=== PATIENT | female | born 1995 | race Caucasian/White ===

== ENCOUNTER 2019-02-16 19:40 | Inpatient (IN) ==
[2019-02-16 20:35] LABS: Bilirubin,Urine Small (Negative); Blood,Urine Small (Negative); Clarity,Urine Clear (Clear); Color,Urine Yellow (Yellow); Glucose,Urine (UA) Normal (Normal); Ketones,Urine Trace mg/dL (Negative); Leukocyte Esterase,Urine Negative (Negative); Nitrite,Urine Negative (Negative); Protein,Urine Negative (Neg-Trace); Specific Gravity,Urine 1.027 (1.010-1.025); Urobilinogen,Urine Normal (Normal)
[2019-02-16 20:36] LABS: Bacteria,Urine None Seen per hpf (None-Few); Hyaline Casts,Urine None Seen per lpf (None-Few); RBC,Urine 0-3 per hpf (0-3); Squamous Epithelial Cell,Urine Many per lpf (None-Few)
--- NOTE | 2019-02-16 20:45 | Emergency Department Note ---
Disposition Clinical Impression: Suicidal ideation Disposition: Still a Patient Referrals: NONE,PCP [Primary Care Provider] - Time of Disposition: 20:44 General Adult HPI - General Chief complaint: ED Psychiatric Symptoms Stated complaint: Psych Time Seen by Provider: 02/16/19 20:17 Source: patient Limitations: no limitations Nursing Notes Reviewed: Yes Vital Signs Reviewed: Yes - History of Present Illness HPI Narrative: ED ATTESTATION NOTE: I examined this patient and my medical decision-making was reviewed with the Resident Physician/EDUCATION CONSULTANT/PA/Student. I have personally performed a face to face evaluation on this patient & I agree with the documented findings, disposition and treatment plan as described except to the extent set forth below. Patient was seen with emergency medicine resident Dr. Dewey Cohen please see copy of his note for details of this encounter Briefly: 23-year-old female history of depression no admission in the past has been having increasing stress expresses suicidal ideation without discrete plan physical examination is benign afebrile with stable vital signs patient will undergo screening labs medical clearance and evaluation by mental health services. Disposition pending Pain Scale: 0 - Related Data Home Medications Medication Instructions Recorded Confirmed Lamictal 06/18/17 06/18/17 Previous Rx's Medication Instructions Recorded Amoxicillin/Clavulanate [Augmentin] 875 mg PO BIDWM #20 tablet 06/18/17 GuaiFENesin/Dextromethorphan 5 ml PO Q6HR PRN #120 syrup 06/18/17 [Robitussin/DM] Loratadine/Pseudophed (12 HR) 1 each PO BID #20 tab.er.12h 06/18/17 [Claritin D (12HR)] Ondansetron ODT [Zofran ODT] 4 mg SL Q6HR PRN #14 tab.rapdis 05/04/18 Allergies Allergy/AdvReac Type Severity Reaction Status Date / Time No Known Allergies Allergy Verified 02/16/19 19:41 Past Medical History - Past Medical History Medical history: Reports: non-contributory Psychiatric history: Reports: anxiety, depression 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 INSPECTOR 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: 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: 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 history - Social History Smoking Status: Current every day smoker Smokeless Tobacco Status: No Alcohol use: Reports: occasionally Drug use: Reports: none Physical Exam - General Limitations: no limitations General appearance: alert Course Vital Signs Temperature 98.2 F 02/16/19 19:41 Pulse Rate 107 02/16/19 19:41 Respiratory Rate 16 02/16/19 19:41 Blood Pressure 120/83 02/16/19 19:41 O2 Sat by Pulse Oximetry 98 02/16/19 19:41 Temperature 98.2 F 02/16/19 19:41 Pulse Rate 107 02/16/19 19:41 Respiratory Rate 16 02/16/19 19:41 Blood Pressure 120/83 02/16/19 19:41 O2 Sat by Pulse Oximetry 98 02/16/19 19:41 Oxygen Delivery Oxygen Delivery Room Air Medical Decision Making - Lab Data Lab Results 02/16/19 02/16/19 02/16/19 Range/Units 19:55 20:24 20:24 Urine Color Yellow (Yellow) Urine Clarity Clear (Clear) Urine pH 6.0 (5.0-8.0) pH Units Ur Specific [place] 1.027 H (1.010-1.025) Urine Protein Negative (Neg-Trace) mg/dL Urine Glucose (UA) Normal (Normal) mg/dL Urine Ketones Trace H (Negative) mg/dL Urine Blood Small H (Negative) Urine Nitrite Negative (Negative) Urine Bilirubin Small H (Negative) Urine Urobilinogen Normal (Normal) mg/dL Ur Leukocyte Esterase Negative (Negative) Urine Test Negative (Negative) Ur Drug Screen Interp See Below
--- NOTE | 2019-02-16 20:45 | Emergency Department Note ---
Disposition Clinical Impression: Suicidal ideation, Medical clearance for psychiatric admission Disposition: Still a Patient Condition: Undetermined Referrals: NONE,PCP [Primary Care Provider] - Forms: ED Satisfaction Letter Time of Disposition: 23:26 Psych HPI - General Chief Complaint: ED Psychiatric Symptoms Stated Complaint: Psych Time Seen by Provider: 02/16/19 20:17 Source: patient Mode of arrival: ambulatory Limitations: no limitations Nursing Notes Reviewed: Yes Vital Signs Reviewed: Yes - History of Present Illness HPI Narrative: 23-year-old female with history of depression, arrives to the emergency department with complaint of suicidal ideation, complaint of depression and states that she feels as though she is getting "unstable". The patient saw her counselor advised her to come to the emergency department for evaluation. The patient had a plan to cut herself and states that she probably would but this is how she would kill herself. Patient denies any other complaints at this time. - Related Data Home Medications Medication Instructions Recorded Confirmed Lamictal 06/18/17 06/18/17 Previous Rx's Medication Instructions Recorded Amoxicillin/Clavulanate [Augmentin] 875 mg PO BIDWM #20 tablet 06/18/17 GuaiFENesin/Dextromethorphan 5 ml PO Q6HR PRN #120 syrup 06/18/17 [Robitussin/DM] Loratadine/Pseudophed (12 HR) 1 each PO BID #20 tab.er.12h 06/18/17 [Claritin D (12HR)] Ondansetron ODT [Zofran ODT] 4 mg SL Q6HR PRN #14 tab.rapdis 05/04/18 Allergies Allergy/AdvReac Type Severity Reaction Status Date / Time No Known Allergies Allergy Verified 02/16/19 19:41 All systems ED: reviewed and negative except as stated. Constitutional: Denies: fever, chills, weakness ENT ED: Denies: dysphagia Cardiovascular: Denies: chest pain Respiratory: Denies: dyspnea Gastrointestinal: Denies: abdominal pain Genitourinary: Denies: urgency Musculoskeletal: Denies: back pain Integumentary: Denies: rash Neurological: Denies: headache Psychiatric: Reports: anxiety, depression, suicidal thoughts. Denies: homicidal thoughts, auditory hallucinations, visual hallucinations Past Medical History - Past Medical History Attestation: Yes The following information was validated with the patient. 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 - Social History Smoking Status: Current every day smoker Smokeless Tobacco Status: No Alcohol use: Reports: occasionally Drug use: Reports: none Physical Exam - General Limitations: no limitations General appearance: alert, in no apparent distress - Head Head exam: atraumatic, normocephalic, normal inspection - Eye Eye exam: Present: normal appearance, PERRL, EOMI - ENT ENT exam: normal exam, normal oropharynx, mucous membranes moist - Neck Neck exam: Present: normal inspection, full ROM, trachea midline - Chest Chest inspection: Present: normal inspection, symmetric chest wall rise - Respiratory Respiratory exam: Absent: respiratory distress - Cardiovascular Cardiovascular exam: Present: tachycardia - Extremities Exam Extremities exam: Present: normal inspection, full ROM, normal capillary refill. Absent: tenderness, pedal edema - Neurological Exam Neurological exam: Present: alert, oriented X3 - Skin Skin exam: Present: warm, dry, intact, normal color Course - Consultations Consultation #1: Patient has been medically cleared. We will call one a at this time for evaluation. Time: 21:48 Vital Signs Temperature 98.2 F 02/16/19 19:41 Pulse Rate 107 02/16/19 19:41 Respiratory Rate 16 02/16/19 19:41 Blood Pressure 120/83 02/16/19 19:41 O2 Sat by Pulse Oximetry 98 02/16/19 19:41 Temperature 98.2 F 02/16/19 19:41 Pulse Rate 107 02/16/19 19:41 Respiratory Rate 16 02/16/19 19:41 Blood Pressure 120/83 02/16/19 19:41 O2 Sat by Pulse Oximetry 98 02/16/19 19:41 Oxygen Delivery Oxygen Delivery Room Air Psych - Lab Data Result diagrams: 02/16/19 20:41 02/16/19 20:41 Lab Results 02/16/19 02/16/19 02/16/19 Range/Units 19:55 20:24 20:24 WBC (4.3-11.1) K/mcL RBC (3.82-4.97) M/mcL Hgb (11.5-15.4) g/dL Hct (35.3-44.9) % MCV (83.0-100.0) fL MCH (28.0-33.3) pg MCHC (31.6-35.5) g/dL RDW (11.5-14.5) % Plt Count (140-400) K/mcL MPV (9.4-12.4) fL Immature Gran % (0-4) % Seg Neutrophils % % Lymphocytes % % Monocytes % % Eosinophils % % Basophils % % Neutrophils # (1.6-8.9) K/mcL Lymphocytes # (0.6-4.6) K/mcL Monocytes # (0.0-1.3) K/mcL Eosinophils # (0.0-0.6) K/mcL Basophils # (0.0-0.2) K/mcL Sodium (136-145) mEq/L Potassium (3.5-5.1) mEq/L Chloride (98-107) mEq/L Carbon Dioxide (23-29) mEq/L BUN (6-20) mg/dL Creatinine (0.60-1.20) mg/dL Est GFR ( Amer) (> 60) Est GFR (Non-Af Amer) (> 60) BUN/Creatinine Ratio (6-26) Glucose (70-105) mg/dL Calculated Osmolality (280-300) Calcium (8.6-10.3) mg/dL TSH (0.340-5.600) mcIU/mL Serum , Qual (Negative) Urine Color Yellow (Yellow) Urine Clarity Clear (Clear) Urine pH 6.0 (5.0-8.0) pH Units Ur Specific [place] 1.027 H (1.010-1.025) Urine Protein Negative (Neg-Trace) mg/dL Urine Glucose (UA) Normal (Normal) mg/dL Urine Ketones Trace H (Negative) mg/dL Urine Blood Small H (Negative) Urine Nitrite Negative (Negative) Urine Bilirubin Small H (Negative) Urine Urobilinogen Normal (Normal) mg/dL Ur Leukocyte Esterase Negative (Negative) Urine Microscopic RBC 0-3 (0-3) per hpf Urine Microscopic WBC 3-5 H (0-3) per hpf Ur Squamous Epith Cells Many H (None-Few) per lpf Uric Acid Crystals Present Urine Bacteria None Seen (None-Few) per hpf Hyaline Casts None Seen (None-Few) per lpf Urine Test Negative (Negative) Salicylates (15.0-30.0) mg/dL Urine Opiates Screen Negative (Cnkkvf=888) ng/mL Acetaminophen (10-20) mcg/mL Ur Barbiturates Screen Negative (Frnaqz=089) ng/mL Ur Phencyclidine Scrn Negative (Cutoff=25) ng/mL Ur Amphetamines Screen Negative (Fykmoh=1510) ng/mL U Benzodiazepines Scrn Negative (Eaermk=247) ng/mL Urine Cocaine Screen Negative (Cutoff= 300) ng/mL U Marijuana (THC) Screen Positive H (Cutoff = 50) ng/mL Ur Drug Screen Interp See Below Ethyl Alcohol (Less than 10) mg/dL 02/16/19 02/16/19 02/16/19 Range/Units 20:41 20:41 20:41 WBC 11.6 H (4.3-11.1) K/mcL RBC 4.39 (3.82-4.97) M/mcL Hgb 13.7 (11.5-15.4) g/dL Hct 40.1 (35.3-44.9) % MCV 91.3 (83.0-100.0) fL MCH 31.2 (28.0-33.3) pg MCHC 34.2 (31.6-35.5) g/dL RDW 13.0 (11.5-14.5) % Plt Count 191 (140-400) K/mcL MPV 10.3 (9.4-12.4) fL Immature Gran % 0.3 (0-4) % Seg Neutrophils % 64.5 % Lymphocytes % 29.0 % Monocytes % 5.2 % Eosinophils % 0.7 % Basophils % 0.3 % Neutrophils # 7.5 (1.6-8.9) K/mcL Lymphocytes # 3.4 (0.6-4.6) K/mcL Monocytes # 0.6 (0.0-1.3) K/mcL Eosinophils # 0.1 (0.0-0.6) K/mcL Basophils # 0.0 (0.0-0.2) K/mcL Sodium 140 (136-145) mEq/L Potassium 3.9 (3.5-5.1) mEq/L Chloride 105 (98-107) mEq/L Carbon Dioxide 24 (23-29) mEq/L BUN 13 (6-20) mg/dL Creatinine 0.59 L (0.60-1.20) mg/dL Est GFR ( Amer) > 60 (> 60) Est GFR (Non-Af Amer) > 60 (> 60) BUN/Creatinine Ratio 22 (6-26) Glucose 96 (70-105) mg/dL Calculated Osmolality 290 (280-300) Calcium 9.0 (8.6-10.3) mg/dL TSH 2.155 (0.340-5.600) mcIU/mL Serum , Qual Negative (Negative) Urine Color (Yellow) Urine Clarity (Clear) Urine pH (5.0-8.0) pH Units Ur Specific [place] (1.010-1.025) Urine Protein (Neg-Trace) mg/dL Urine Glucose (UA) (Normal) mg/dL Urine Ketones (Negative) mg/dL Urine Blood (Negative) Urine Nitrite (Negative) Urine Bilirubin (Negative) Urine Urobilinogen (Normal) mg/dL Ur Leukocyte Esterase (Negative) Urine Microscopic RBC (0-3) per hpf Urine Microscopic WBC (0-3) per hpf Ur Squamous Epith Cells (None-Few) per lpf Uric Acid Crystals Urine Bacteria (None-Few) per hpf Hyaline Casts (None-Few) per lpf Urine Test (Negative) Salicylates < 2.5 L (15.0-30.0) mg/dL Urine Opiates Screen (Shvlbe=436) ng/mL Acetaminophen < 10 L (10-20) mcg/mL Ur Barbiturates Screen (Lgmbug=797) ng/mL Ur Phencyclidine Scrn (Cutoff=25) ng/mL Ur Amphetamines Screen (Tjuzbb=9790) ng/mL U Benzodiazepines Scrn (Nbfxjk=212) ng/mL Urine Cocaine Screen (Cutoff= 300) ng/mL U Marijuana (THC) Screen (Cutoff = 50) ng/mL Ur Drug Screen Interp Ethyl Alcohol < 10 (Less than 10) mg/dL Psychiatric Medical Clearance - Medical Clearance Checklist Medical History: No Social History Section defined Current Vitals: Last Vital Signs Temp 98.2 F 02/16/19 19:41 Pulse 107 02/16/19 19:41 Resp 16 02/16/19 19:41 BP 120/83 02/16/19 19:41 Pulse Ox 98 02/16/19 19:41 Psychiatric Lab Panel: Drug Levels and Toxicity 02/16/19 02/16/19 20:24 20:41 Urine Opiates Screen Negative Acetaminophen < 10 L Ur Barbiturates Screen Negative Ur Phencyclidine Scrn Negative Ur Amphetamines Screen Negative U Benzodiazepines Scrn Negative Urine Cocaine Screen Negative U Marijuana (THC) Screen Positive H Ethyl Alcohol < 10 Abnormal Labs: Abnormal lab results WBC 11.6 K/mcL (4.3-11.1) H 02/16/19 20:41 0.59 mg/dL (0.60-1.20) L 02/16/19 20:41 Ur Specific [place] 1.027 (1.010-1.025) H 02/16/19 19:55 Trace mg/dL (Negative) H 02/16/19 19:55 Small (Negative) H 02/16/19 19:55 Small (Negative) H 02/16/19 19:55 3-5 per hpf (0-3) H 02/16/19 19:55 Ur Squamous Epith Cells Many per lpf (None-Few) H 02/16/19 19:55 Salicylates < 2.5 mg/dL (15.0-30.0) L 02/16/19 20:41 Acetaminophen < 10 mcg/mL (10-20) L 02/16/19 20:41 U Marijuana (THC) Screen Positive ng/mL (Cutoff = 50) H 02/16/19 20:24 Statement of Medical Clearance: I have evaluated the patient, reviewed diagnostic information, and certify that the patient's medical condition is sufficiently stable that transfer to the psychiatric unit does not pose a significant risk of deterioration.
[2019-02-16 20:50] LABS: Amphetamine Screen,Urine Negative ng/mL (Cutoff=1000); Barbiturate Screen,Urine Negative ng/mL (Cutoff=200); Benzodiazepines Screen,Urine Negative ng/mL (Cutoff=200); Cannabinoid Screen,Urine Positive ng/mL (Cutoff = 50); Cocaine Screen,Urine Negative ng/mL (Cutoff= 300); Opiate Screen,Urine Negative ng/mL (Cutoff=300); Phencyclidine Screen,Urine Negative ng/mL (Cutoff=25)
[2019-02-16 20:51] LABS: Uric Acid Crystals,Urine Present
[2019-02-16 21:09] LABS: Basophils % 0.3 %; Eosinophils # 0.1 K/mcL (0.0-0.6); Eosinophils % 0.7 %; Hematocrit 40.1 % (35.3-44.9); Hemoglobin 13.7 g/dL (11.5-15.4); Immature Granulocytes % 0.3 % (0-4); Lymphocytes # 3.4 K/mcL (0.6-4.6); Mean Corpuscular HGB Conc 34.2 g/dL (31.6-35.5); Mean Corpuscular Hemoglobin 31.2 pg (28.0-33.3); Mean Corpuscular Volume 91.3 fL (83.0-100.0); Mean Platelet Volume 10.3 fL (9.4-12.4); Monocytes # 0.6 K/mcL (0.0-1.3); Monocytes % 5.2 %; Neutrophils # 7.5 K/mcL (1.6-8.9); Platelet Count 191 K/mcL (140-400); Red Blood Count 4.39 M/mcL (3.82-4.97); Segmented Neutrophils % 64.5 %
[2019-02-16 21:33] LABS: Acetaminophen < 10 mcg/mL (10-20); BUN/Creatinine Ratio 22 (6-26); Blood Urea Nitrogen 13 mg/dL (6-20); Carbon Dioxide 24 mEq/L (23-29); Chloride 105 mEq/L (98-107); Ethanol < 10 mg/dL (Less than 10); Glucose 96 mg/dL (70-105); Osmolality,Calculated 290 (280-300); Potassium 3.9 mEq/L (3.5-5.1); Salicylate < 2.5 mg/dL (15.0-30.0); Sodium 140 mEq/L (136-145); eGFR For Non-African Americans > 60 (> 60)
[2019-02-16 21:41] LABS: Thyroid Stimulating Hormone 2.155 mcIU/mL (0.340-5.600)
[2019-02-17] MEDS ORDERED: Mag Hydrox/Al Hydrox/Simeth 30 ML UDC PO PRN (01:02)
[2019-02-17] MEDS ORDERED: traZODone 50 MG TABLET PO PRN (01:02)
[2019-02-17] MEDS ORDERED: hydrOXYzine pamoate 25 MG CAPSULE PO PRN (01:02)
[2019-02-17] MEDS ORDERED: *HR* LORazepam 2 MG/ML VIAL IM PRN (01:02)
[2019-02-17] MEDS ORDERED: MOM Conc 10 ML UD.LIQ PO PRN (01:02)
[2019-02-17] MEDS ORDERED: Acetaminophen 325 MG TABLET PO PRN (01:02)
[2019-02-17] MEDS ORDERED: Haloperidol Lactate 5 MG/ML VIAL IM PRN (01:02)
[2019-02-17] MEDS: Nicotine 21 MG PATCH.TD24 TD SCH (08:49)
--- NOTE | 2019-02-17 09:32 | Psychiatry History & Physical ---
Date of Encounter: 02/17/19 Time of Encounter: 09:29 History of Present Illness Patient Stated Chief Complaint: suicidal ideation Medicare Admission Attestation: For traditional Medicare patients the provided hospital inpatient services are reasonable and necessary and in the case of services not specified as inpatient-only under 42 CFR 419.22 (n), that they are appropriately provided as inpatient services in accordance 42 CFR 412.3. For Critical Access Hospital the patient may reasonably be expected to be discharged or transferred to a hospital within 96 hours after admission to the Critical Access Hospital. Admitted From: Home Plans for Post Hospital Care: Home History of Present Illness: Ms. Burris is a 23 year old female who was admitted secondary to SI and urges to cut. Client states she is diagnosed with Borderline Personality Disorder and has had SI daily from a young age. Two suicide attempts at the ages of 13 and 14y/o via overdose. No medical care either time. No prior hospitalizations. Linked with outpatient services. Prescribed Zoloft and Abilify. Due to see a new therapist for the first time next week. Client reports cutting in her youth. Stopped for a while. Cut twice last year and then yesterday used a pair of scissors to superficially cut her ankle. Client denies active SI yesterday but states if she as a result of her cutting behaviors that would be ok with her. Client states she will often do things that might result in but that she does not do things to intentionally cause her . She gave examples of not wearing her seatbelt or smoking too many cigarettes. Client states mental illness runs in her family and that her mother has depression. Also reports a maternal uncle attempted suicide. Client denies having any physical health problems or medication allergies. No AOD use beyond THC and alcohol on Saturdays. Client is with three children and states her family is supportive. Client states she likes her Zoloft and Abilify but that she struggles with anxiety. Does not want to change doses of current medications. Discussed adding Buspar and she is agreeable. Discussed risks and benefits of this medication and client signed consent. Also discussed DBT therapy as something to look into if things do not ultimately improve for her after discharge. Past Med Surg Social Fam HX - Past Medical History Medical history: non-contributory - Past Psychiatric History Psychiatric history: Reports: anxiety, depression, prior suicide attempt Family psychiatric history: Yes Family Psychiatric History Details: mother-depression Family History of Suicide: Attempted Family Suicide History Details: maternal uncle - Past Surgical History Surgical History: non-contributory - Social History Smoking Status: Current every day smoker Smokeless Tobacco Status: No Alcohol use: recent Drug use: marijuana Medications & Allergies Aripiprazole [Abilify] 15 mg PO QPM 02/17/19 [History] Sertraline [Zoloft] 75 mg PO DAILY 02/17/19 [History] Allergy/AdvReac Type Severity Reaction Status Date / Time No Known Allergies Allergy Verified 02/16/19 19:41 Review of Systems Constitutional: Denies: fever, chills, weakness, weight change Eyes: Denies: eye pain, vision change Ears, Nose, Throat: Denies: ear pain, throat pain, dental pain, hearing loss, congestion Cardiovascular: Denies: chest pain, palpitations, dyspnea on exertion Respiratory: Denies: cough, dyspnea, wheezes Gastrointestinal: Denies: abdominal pain, nausea, vomiting, diarrhea, constipation Genitourinary female: Denies: urgency, dysuria, frequency, abnormal menses, dyspareunia Musculoskeletal: Denies: joint swelling, joint pain Integumentary: Denies: rash, lesions, pruritus Neurological: Denies: headache, weakness, numbness, memory loss Endocrine: Denies: fatigue, heat or cold intolerance Hematologic/Lymphatic: Denies: easy bruising, lymphadenopathy Allergic/Immunologic: Denies: urticaria, itchy eyes Exam - HEENT Head exam IM: Present: atraumatic Eye exam IM: Present: EOMI, normal appearance, PERRL ENT exam IM: Present: normal exam - Neurological Neurological exam: Present: CN II-XII intact - Respiratory Respiratory exam IM: Present: CTAB - GI/Abdominal GI/Abdominal exam IM: Present: normal bowel sounds, soft. Absent: tenderness - Extremities Extremities exam IM: Present: full ROM - Skin Skin exam IM: Present: dry, warm - Constitutional Vitals: Temp Pulse Resp BP Pulse Ox 98 F 72 16 117/73 98 02/17/19 09:00 02/17/19 09:00 02/17/19 09:00 02/17/19 09:00 02/17/19 09:00 General appearance: age & developmentally appropriate, well-groomed, well-nourished - Musculoskeletal Gait: normal Station: relaxed Strength & Tone: normal for patient - Psychiatric Patient Orientation: Yes Person, Yes Time, Yes Place Level of alertness: Alert Behavior: calm, cooperative Psychomotor activity: Normal Eye Contact: Maintains Eye Contact Mood Description: Anxious Affect description: congruent with mood Speech Volume: Normal Speech pattern: normal rate, normal rhythm, normal tone, fluent, spontaneous Language & Vocabulary: consistent with education Thought Process: Linear, Goal Oriented Thought Content: Yes Suicidal ideation, No Homicidal ideation, No Overt delusions Perceptual Disturbances: No Auditory hallucinations, No Visual hallucinations Attention Span Ability: Capable of Focused Attention Memory Description: Grossly Intact Patient Reliability: Reliable Historian Intelligence Estimate: Average Judgment: Poor Insight: Partial Results - Drug Levels and Toxicology Drug Levels and Toxicology: Drug Levels and Toxicity 02/16/19 02/16/19 20:24 20:41 Urine Opiates Screen Negative Acetaminophen < 10 L Ur Barbiturates Screen Negative Ur Phencyclidine Scrn Negative Ur Amphetamines Screen Negative U Benzodiazepines Scrn Negative Urine Cocaine Screen Negative U Marijuana (THC) Screen Positive H Ethyl Alcohol < 10 - Labs Labs: Laboratory Last Values WBC 11.6 K/mcL (4.3-11.1) H 02/16/19 20:41 RBC 4.39 M/mcL (3.82-4.97) 02/16/19 20:41 Hgb 13.7 g/dL (11.5-15.4) 02/16/19 20:41 Hct 40.1 % (35.3-44.9) 02/16/19 20:41 MCV 91.3 fL (83.0-100.0) 02/16/19 20:41 MCH 31.2 pg (28.0-33.3) 02/16/19 20:41 MCHC 34.2 g/dL (31.6-35.5) 02/16/19 20:41 RDW 13.0 % (11.5-14.5) 02/16/19 20:41 Plt Count 191 K/mcL (140-400) 02/16/19 20:41 MPV 10.3 fL (9.4-12.4) 02/16/19 20:41 Immature Gran % 0.3 % (0-4) 02/16/19 20:41 Seg Neutrophils % 64.5 % 02/16/19 20:41 29.0 % 02/16/19 20:41 5.2 % 02/16/19 20:41 0.7 % 02/16/19 20:41 0.3 % 02/16/19 20:41 7.5 K/mcL (1.6-8.9) 02/16/19 20:41 3.4 K/mcL (0.6-4.6) 02/16/19 20:41 0.6 K/mcL (0.0-1.3) 02/16/19 20:41 0.1 K/mcL (0.0-0.6) 02/16/19 20:41 0.0 K/mcL (0.0-0.2) 02/16/19 20:41 Sodium 140 mEq/L (136-145) 02/16/19 20:41 Potassium 3.9 mEq/L (3.5-5.1) 02/16/19 20:41 Chloride 105 mEq/L (98-107) 02/16/19 20:41 Carbon Dioxide 24 mEq/L (23-29) 02/16/19 20:41 BUN 13 mg/dL (6-20) 02/16/19 20:41 0.59 mg/dL (0.60-1.20) L 02/16/19 20:41 Est GFR ( Amer) > 60 (> 60) 02/16/19 20:41 Est GFR (Non-Af Amer) > 60 (> 60) 02/16/19 20:41 22 (6-26) 02/16/19 20:41 Glucose 96 mg/dL (70-105) 02/16/19 20:41 290 (280-300) 02/16/19 20:41 Calcium 9.0 mg/dL (8.6-10.3) 02/16/19 20:41 TSH 2.155 mcIU/mL (0.340-5.600) 02/16/19 20:41 Serum , Qual Negative (Negative) 02/16/19 20:41 Yellow (Yellow) 02/16/19 19:55 Clear (Clear) 02/16/19 19:55 6.0 pH Units (5.0-8.0) 02/16/19 19:55 Ur Specific [place] 1.027 (1.010-1.025) H 02/16/19 19:55 Negative mg/dL (Neg-Trace) 02/16/19 19:55 Normal mg/dL (Normal) 02/16/19 19:55 Trace mg/dL (Negative) H 02/16/19 19:55 Small (Negative) H 02/16/19 19:55 Negative (Negative) 02/16/19 19:55 Small (Negative) H 02/16/19 19:55 Normal mg/dL (Normal) 02/16/19 19:55 Ur Leukocyte Esterase Negative (Negative) 02/16/19 19:55 0-3 per hpf (0-3) 02/16/19 19:55 3-5 per hpf (0-3) H 02/16/19 19:55 Ur Squamous Epith Cells Many per lpf (None-Few) H 02/16/19 19:55 Uric Acid Crystals Present 02/16/19 19:55 None Seen per hpf (None-Few) 02/16/19 19:55 Hyaline Casts None Seen per lpf (None-Few) 02/16/19 19:55 Negative (Negative) 02/16/19 20:24 Salicylates < 2.5 mg/dL (15.0-30.0) L 02/16/19 20:41 Negative ng/mL (Yhwefh=842) 02/16/19 20:24 Acetaminophen < 10 mcg/mL (10-20) L 02/16/19 20:41 Ur Barbiturates Screen Negative ng/mL (Wxcplj=445) 02/16/19 20:24 Ur Phencyclidine Scrn Negative ng/mL (Cutoff=25) 02/16/19 20:24 Ur Amphetamines Screen Negative ng/mL (Yvbxtq=1976) 02/16/19 20:24 U Benzodiazepines Scrn Negative ng/mL (Yxfztd=692) 02/16/19 20:24 Negative ng/mL (Cutoff= 300) 02/16/19 20:24 U Marijuana (THC) Screen Positive ng/mL (Cutoff = 50) H 02/16/19 20:24 Ur Drug Screen Interp See Below 02/16/19 20:24 Ethyl Alcohol < 10 mg/dL (Less than 10) 02/16/19 20:41 Assessment and Plan (1) Major depress dis, severe Current visit: Yes Status: Acute Plan: Admit inpatient for safety and stabilization, Close observation, Suicide Precautions per unit protocol, Encourage participation in unit milieu, Group Therapy, Monitor sleep, Monitor appetite Risks, benefits, side effects, alternatives discussed w/pt: Yes Patient agreeable to treatment: Yes Plans for Post Hospital Care: Home Estimated Length of Stay (Days): 3 (2) Borderline personality disorder Current visit: Yes Status: Acute Plan: Admit inpatient for safety and stabilization, Close observation, Suicide Precautions per unit protocol, Encourage participation in unit milieu, Group Therapy, Monitor sleep, Monitor appetite Risks, benefits, side effects, alternatives discussed w/pt: Yes Patient agreeable to treatment: Yes Plans for Post Hospital Care: Home Estimated Length of Stay (Days): 3
[2019-02-17] MEDS ORDERED: ARIPiprazole 10 MG TABLET PO SCH (21:00)
[2019-02-18] MEDS: Nicotine 21 MG PATCH.TD24 TD SCH (08:07)
[2019-02-18 08:09] VITALS: BP 112/76
--- NOTE | 2019-02-18 09:42 | Discharge Summary ---
Date of Encounter: 02/18/19 Time of Encounter: 09:39 Diagnosis - Discharge Diagnosis (1) Major depress dis, severe Status: Acute (2) Borderline personality disorder Status: Acute Medications - Discharge Medications Prescriptions: Buspirone HCl [Buspar] 7.5 mg PO BID #90 tablet Aripiprazole [Abilify] 15 mg PO QPM 02/17/19 [History] Sertraline [Zoloft] 75 mg PO DAILY 02/17/19 [History] Buspirone HCl [Buspar] 7.5 mg PO BID #90 tablet 02/18/19 [Rx] hydrOXYzine pamoate [HydrOXYzine Pamoate] 25 mg PO TID PRN capsule 02/18/19 [Rx] Allergy/AdvReac Type Severity Reaction Status Date / Time No Known Allergies Allergy Verified 02/16/19 19:41 Results Procedures and tests throughout hospitalization: Completed Lab Orders Category Date Time Status Acetaminophen Stat Lab 02/16/19 20:41 Completed Basic Metabolic Panel Stat Lab 02/16/19 20:41 Completed Complete Blood Count [HEME] Stat Lab 02/16/19 20:41 Completed Drug Screen, Urine [UCHEM] Stat Lab 02/16/19 20:24 Completed Ethanol Stat Lab 02/16/19 20:41 Completed HCG,Routine Test Stat Lab 02/16/19 20:41 Completed Test Result, Urine [URIN] Stat Lab 02/16/19 20:24 Completed Salicylate Stat Lab 02/16/19 20:41 Completed Thyroid Stimulating Hormone Stat Lab 02/16/19 20:41 Completed Urinalysis reflex Microscopic [URIN] Stat Lab 02/16/19 19:55 Completed Provider Date of admission: 02/17/19 00:47 Primary care physician: PCP NONE Discharging clinician: Rupa Tristan Psychiatry Exam - Constitutional Vitals: Temp Pulse Resp BP Pulse Ox 98.2 F 77 18 112/76 98 02/18/19 08:08 02/18/19 08:08 02/18/19 08:08 02/18/19 08:08 02/18/19 08:08 General appearance: age & developmentally appropriate, well-groomed, well- nourished - Musculoskeletal Gait: normal Station: relaxed Strength & Tone: normal for patient - Psychiatric Patient Orientation: Yes Person, Yes Time, Yes Place Level of alertness: Alert Behavior: calm, cooperative Psychomotor activity: Normal Eye Contact: Maintains Eye Contact Mood Description: Euthymic/stable Affect description: congruent with mood, full range Speech Volume: Normal Speech pattern: normal rate, normal rhythm, normal tone, fluent, spontaneous Language & Vocabulary: consistent with education Thought Process: Linear, Goal Oriented Thought Content: No Suicidal ideation, No Homicidal ideation, No Overt delusions Perceptual Disturbances: No Auditory hallucinations, No Visual hallucinations Attention Span Ability: Capable of Focused Attention Memory Description: Grossly Intact Patient Reliability: Reliable Historian Fund of knowledge: Yes abstraction ability, Yes aware of current events Intelligence Estimate: Average Judgment: Limited Insight: Partial Hospital Course Hospital course: Ms. Burris is a 23 year old female who was admitted secondary to chronic SI and superficial cutting behaviors. Client indicated that increased anxiety is what was making her want to cut. Buspar and prn Vistaril were added to her home regimen of Zoloft and Abilify with good clinical effect. Client did well at attending and participating in groups. Today she even requested not to be discharged until after the groups were done for the day. She slept and ate well. Interacted appropriately with staff and her peers. Today she is denying active SI, intent, or plan. Has support from her and children. Showing a positive clinical response to medications and learning new coping skills. Starting with a new therapist next week but also asking about DBT and will be given the necessary referral information. Safety planning including having dispense meds to be done with prior to discharge. Total time spent with client greater than 30 minutes. Patient was educated of her diagnosis and the risks, benefits, and side effects of this treatment and alternative treatment options and was monitored for responsiveness and side effects. Mood, anxiety, sleep, appetite, and interest improved, as did future orientation. Self-harm thoughts subsided, thinking cleared, psychosis resolved, and mood stabilized. Patient was able to attend both individual and group therapy sessions as well as meeting with the psychiatrist daily and urged to discuss any medication or treatment issues or other concerns. The patient was educated primarily by verbal means about their diagnosis and manifestations in their life. The option for treatment including group and individual therapy programming was offered to the patient in the use of medications with all their potential risks, benefits, and side effects were discussed with the patient at length. The patient was given the opportunity to ask questions and was noted to participate in the treatment in the planning process. The patient felt ready and eager to be discharged from the inpatient psychiatric unit to continue on with treatment as an outpatient. The patient agreed that she is safe for this disposition. The patient was considered to be able to participate in informed consent and decision making with respect to medical, legal, and financial issues of the time of discharge. At the time of discharge the patient adamantly denied any concerns for lethality including suicidal or homicidal thoughts ideations or plans and was future oriented toward ongoing mental health care, medical follow-up and sobriety. - Time Spent with Patient Total time spent providing and/or coordinating discharge services: Assessment and Plan - Patient/Caregiver Discharge Instructions Activity: resume usual activities as tolerated Diet: regular diet - Follow up Plan Follow up with: NONE,PCP [Primary Care Provider] - Functional capacity at discharge: independent ambulation Overall status at discharge: Stable Disposition: Home, Self-Care Quality - Multiple Antipsychotics Patient discharged on 2 or more antipsychotic medications: No Procedures - Procedures Procedures: Medication Management, Crisis Stabilization, Supportive Therapy, Group Therapy
== END 2019-02-18 17:20 | disposition home or self-care (01) | DRG 751 ==
LOC: EMEROOARM 19:40 → 1ANU 02-17 00:47
PROVIDERS: ADMIT Psychiatry & Neurology Psychiatry; ATTEND Psychiatry & Neurology Psychiatry

== ENCOUNTER 2019-02-26 17:22 | Inpatient (IN) ==
--- NOTE | 2019-02-26 18:38 | Emergency Department Note ---
Disposition Clinical Impression: Suicidal ideation Bipolar disorder Qualifiers: Active/Remission status: remission status unspecified Qualified Code(s): F31.9 - Bipolar disorder, unspecified Disposition: Admitted As Inpatient Condition: Good Time of Disposition: 22:08 Psych HPI - General Chief Complaint: ED Psychiatric Symptoms Stated Complaint: SI Time Seen by Provider: 02/26/19 17:56 Source: patient Mode of arrival: ambulatory Limitations: no limitations Nursing Notes Reviewed: Yes Vital Signs Reviewed: Yes - History of Present Illness HPI Narrative: 23-year-old female past medical history of anxiety/depression recently hospitalized at this facility for psychiatric evaluation released on BuSpar and Vistaril states that her symptoms have been getting worse since the time of her release. Patient states that she is constantly ruminating on suicidal thoughts, denies having an active plan, she denies homicidal ideation or recent attempts at suicide through Ingestion or trauma. Patient denies auditory or visual hallucinations. Patient admits to previous psychiatric hospitalizations and prior attempts at suicide through drug ingestions. Patient denies alcohol or drug use, denies possibility of . Patient denies any other medical concerns replace at this time. Pt complaint: suicidal ideation, feels depressed Onset (ago): week(s) Duration: constant, getting worse History of similar episodes: Yes Worsens with: medication Context: new medication(s) Alleged intoxication: No Associated Psychiatric Symptoms: suicidal ideation Associated symptoms: Reports: denies other symptoms Traumatic symptoms: denies traumatic injury Treatments prior to arrival: none Self harm or harm to others: admits thoughts of self harm - Related Data Home Medications Medication Instructions Recorded Confirmed ARIPiprazole [Abilify] 10 mg PO DAILY 02/27/19 02/27/19 Previous Rx's Medication Instructions Recorded hydrOXYzine pamoate [HydrOXYzine 25 mg PO TID PRN capsule 02/18/19 Pamoate] ARIPiprazole [Abilify] 10 mg PO DAILY 30 Days #0 tablet 03/04/19 Benztropine [Cogentin] 1 mg PO TID 30 Days #90 tablet 03/04/19 Sertraline [Zoloft] 100 mg PO DAILY 30 Days #30 tablet 03/04/19 hydrOXYzine pamoate [HydrOXYzine 25 mg PO TID PRN 30 Days #90 03/04/19 Pamoate] capsule Allergies Allergy/AdvReac Type Severity Reaction Status Date / Time No Known Allergies Allergy Verified 02/27/19 13:06 Review of Systems: *See History of Present Illness for more detail Constitutional: Denies: fever, chills Cardiovascular: Denies: chest pain Respiratory: Denies: dyspnea, Gastrointestinal: Denies: abdominal pain, nausea, vomiting, Genitourinary: Denies: hematuria Musculoskeletal: Denies: back pain, neck pain Integumentary: Denies: rash Neurological: Denies: headache, weakness, lightheadedness/dizziness, numbness, paresthesias, difficulty with ambulation. Endocrine: Denies: fatigue All systems ED: reviewed and negative except as stated. Review of Systems: As Per HPI Past Medical History - Past Medical History Medical history: Reports: non-contributory Surgical history: Reports: non-contributory Psychiatric history: Reports: anxiety, depression, prior suicide attempt [employer] history: Reports: no [employer] history - Social History Smoking Status: Current every day smoker Smokeless Tobacco Status: No Alcohol use: Reports: none Drug use: Reports: marijuana Physical Exam Constitutional: No acute distress, [id number], engaged to conversation, speech is fluid, answers questions appropriately Neuro: GCS 15, no overt focal neurological deficits Head: Atraumatic, normocephalic Eyes: Pupils equal, round and reactive to light, no scleral icterus, no conjunctival injection Neck: Trachea midline without deviation. Anterior neck is supple without swelling. *Chest: Symmetric chest wall rise *Heart: Cardiac rhythm and rate are regular with S1 and S2 , no S3 or S4 appreciated, no murmurs, gallops, rubs, or clicks. *Lungs: Lungs are clear to auscultation bilaterally, without accessory muscle use or prolonged expiratory phase. No wheezes, rhonchi or stridor appreciated. Abdomen: Abdomen is flat, soft to palpation, normal bowel sounds. No abdominal bruit auscultated. Non-distended, non-rigid, no organomegaly, no ascites appreciated. No pulsatile mass, no tenderness or guarding to palpation in all four quadrants, no rebound Extremities: Normal capillary refill without evidence of pedal edema, joint swelling or erythema. Pulses/motor intact in extremities. Psychiatric exam: Patient displays a normal affect and mood for the environment. No overt signs of hallucination. Integumentary: warm, dry, intact, normal color. No rash, cyanosis, diaphoresis, erythema, or pallor - General Limitations: no limitations General appearance: alert, in no apparent distress Course Course Narrative: CBC, BMP, urinalysis/urine /urine toxicology, salicylate, acetaminophen, EtOH Pending psychiatric evaluation based on result of the above-stated tests. Vital Signs Temperature 98.3 F 02/26/19 17:25 Pulse Rate 91 02/26/19 17:25 Respiratory Rate 16 02/26/19 17:25 Blood Pressure 114/76 02/26/19 17:25 O2 Sat by Pulse Oximetry 96 02/26/19 17:25 Temperature 98.3 F 02/26/19 17:25 Pulse Rate 91 02/26/19 17:25 Respiratory Rate 16 02/26/19 17:25 Blood Pressure 114/76 02/26/19 17:25 O2 Sat by Pulse Oximetry 96 02/26/19 17:25 Oxygen Delivery Oxygen Delivery Room Air Psych - MDM Narrative Medical decision making narrative: Patient urine toxicology is positive for marijuana Otherwise unremarkable workup. Patient is cleared for psychiatric evaluation at this time. Pending psychiatric recommendations for final disposition. Patient signed out to care of physician staff of Dr. Waldo Davis and Dr. Sudarshan Aldridge at the end of my shift. Please see documentation by these physicians for further evaluation, management and final disposition. - Lab Data Result diagrams: 02/26/19 18:58 02/26/19 18:58 Lab Results 02/26/19 02/26/19 02/26/19 Range/Units 18:02 18:02 18:02 WBC (4.3-11.1) K/mcL RBC (3.82-4.97) M/mcL Hgb (11.5-15.4) g/dL Hct (35.3-44.9) % MCV (83.0-100.0) fL MCH (28.0-33.3) pg MCHC (31.6-35.5) g/dL RDW (11.5-14.5) % Plt Count (140-400) K/mcL MPV (9.4-12.4) fL Immature Gran % (0-4) % Seg Neutrophils % % Lymphocytes % % Monocytes % % Eosinophils % % Basophils % % Neutrophils # (1.6-8.9) K/mcL Lymphocytes # (0.6-4.6) K/mcL Monocytes # (0.0-1.3) K/mcL Eosinophils # (0.0-0.6) K/mcL Basophils # (0.0-0.2) K/mcL Sodium (136-145) mEq/L Potassium (3.5-5.1) mEq/L Chloride (98-107) mEq/L Carbon Dioxide (23-29) mEq/L BUN (6-20) mg/dL Creatinine (0.60-1.20) mg/dL Est GFR ( Amer) (> 60) Est GFR (Non-Af Amer) (> 60) BUN/Creatinine Ratio (6-26) Glucose (70-105) mg/dL Calculated Osmolality (280-300) Calcium (8.6-10.3) mg/dL Urine Color Dark Yellow (Yellow) Urine Clarity Clear (Clear) Urine pH 6.5 (5.0-8.0) pH Units Ur Specific [place] 1.021 (1.010-1.025) Urine Protein Negative (Neg-Trace) mg/dL Urine Glucose (UA) Normal (Normal) mg/dL Urine Ketones Negative (Negative) mg/dL Urine Blood Negative (Negative) Urine Nitrite Negative (Negative) Urine Bilirubin Negative (Negative) Urine Urobilinogen Normal (Normal) mg/dL Ur Leukocyte Esterase Negative (Negative) Ur Culture Indicated? NO (NO) Urine Test Negative (Negative) Salicylates (15.0-30.0) mg/dL Urine Opiates Screen Negative (Lsxhdt=284) ng/mL Acetaminophen (10-20) mcg/mL Ur Barbiturates Screen Negative (Lxpkna=439) ng/mL Ur Phencyclidine Scrn Negative (Cutoff=25) ng/mL Ur Amphetamines Screen Negative (Jftzag=8621) ng/mL U Benzodiazepines Scrn Negative (Xybmre=928) ng/mL Urine Cocaine Screen Negative (Cutoff= 300) ng/mL U Marijuana (THC) Screen Positive H (Cutoff = 50) ng/mL Ur Drug Screen Interp See Below 02/26/19 02/26/19 Range/Units 18:58 18:58 WBC 11.1 (4.3-11.1) K/mcL RBC 4.45 (3.82-4.97) M/mcL Hgb 14.0 (11.5-15.4) g/dL Hct 41.1 (35.3-44.9) % MCV 92.4 (83.0-100.0) fL MCH 31.5 (28.0-33.3) pg MCHC 34.1 (31.6-35.5) g/dL RDW 12.5 (11.5-14.5) % Plt Count 193 (140-400) K/mcL MPV 10.6 (9.4-12.4) fL Immature Gran % 0.3 (0-4) % Seg Neutrophils % 60.4 % Lymphocytes % 32.2 % Monocytes % 5.6 % Eosinophils % 1.3 % Basophils % 0.2 % Neutrophils # 6.7 (1.6-8.9) K/mcL Lymphocytes # 3.6 (0.6-4.6) K/mcL Monocytes # 0.6 (0.0-1.3) K/mcL Eosinophils # 0.1 (0.0-0.6) K/mcL Basophils # 0.0 (0.0-0.2) K/mcL Sodium 140 (136-145) mEq/L Potassium 3.8 (3.5-5.1) mEq/L Chloride 106 (98-107) mEq/L Carbon Dioxide 29 (23-29) mEq/L BUN 10 (6-20) mg/dL Creatinine 0.83 (0.60-1.20) mg/dL Est GFR ( Amer) > 60 (> 60) Est GFR (Non-Af Amer) > 60 (> 60) BUN/Creatinine Ratio 12 (6-26) Glucose 80 (70-105) mg/dL Calculated Osmolality 288 (280-300) Calcium 9.3 (8.6-10.3) mg/dL Urine Color (Yellow) Urine Clarity (Clear) Urine pH (5.0-8.0) pH Units Ur Specific [place] (1.010-1.025) Urine Protein (Neg-Trace) mg/dL Urine Glucose (UA) (Normal) mg/dL Urine Ketones (Negative) mg/dL Urine Blood (Negative) Urine Nitrite (Negative) Urine Bilirubin (Negative) Urine Urobilinogen (Normal) mg/dL Ur Leukocyte Esterase (Negative) Ur Culture Indicated? (NO) Urine Test (Negative) Salicylates < 2.5 L (15.0-30.0) mg/dL Urine Opiates Screen (Zgrjsj=490) ng/mL Acetaminophen < 10 L (10-20) mcg/mL Ur Barbiturates Screen (Bdlacp=418) ng/mL Ur Phencyclidine Scrn (Cutoff=25) ng/mL Ur Amphetamines Screen (Ehrbgu=5434) ng/mL U Benzodiazepines Scrn (Eodutd=368) ng/mL Urine Cocaine Screen (Cutoff= 300) ng/mL U Marijuana (THC) Screen (Cutoff = 50) ng/mL Ur Drug Screen Interp Psychiatric Medical Clearance - Medical Clearance Checklist Medical History: No Social History Section defined Current Vitals: Last Vital Signs Temp 98.3 F 02/26/19 17:25 Pulse 91 02/26/19 17:25 Resp 16 02/26/19 17:25 BP 114/76 02/26/19 17:25 Pulse Ox 96 02/26/19 17:25 Psychiatric Lab Panel: Drug Levels and Toxicity 02/26/19 02/26/19 18:02 18:58 Urine Opiates Screen Negative Acetaminophen < 10 L Ur Barbiturates Screen Negative Ur Phencyclidine Scrn Negative Ur Amphetamines Screen Negative U Benzodiazepines Scrn Negative Urine Cocaine Screen Negative U Marijuana (THC) Screen Positive H Abnormal Labs: Abnormal lab results Salicylates < 2.5 mg/dL (15.0-30.0) L 02/26/19 18:58 Acetaminophen < 10 mcg/mL (10-20) L 02/26/19 18:58 U Marijuana (THC) Screen Positive ng/mL (Cutoff = 50) H 02/26/19 18:02 Statement of Medical Clearance: I have evaluated the patient, reviewed diagnostic information, and certify that the patient's medical condition is sufficiently stable that transfer to the psychiatric unit does not pose a significant risk of deterioration. Attestation Statement - Attestation Attestation: I have seen this patient with the resident physician, I have personally evaluated this patient. I had reviewed the chart and document dictation by the resident physician and aM in agreement with the information documented by the resident physician. Please see documentation by the resident physician for complete chart including past medical history, family medical history, review of systems, current history and physical and laboratory and imaging studies. I was present for all procedures, provided direct supervision for all pro cedures, was present for the entirety of all procedures and provided direct guidance during the procedures. Please see documentation by the resident physician for any procedures performed. I have reviewed all interpretations of EKGs, and reviewed all EKGs performed on patient's as well. I have also reviewed reports of imaging as provided by radiology.
[2019-02-26 18:58] LABS: Bilirubin,Urine Negative (Negative); Blood,Urine Negative (Negative); Clarity,Urine Clear (Clear); Color,Urine Dark Yellow (Yellow); Glucose,Urine (UA) Normal (Normal); Ketones,Urine Negative (Negative); Leukocyte Esterase,Urine Negative (Negative); Nitrite,Urine Negative (Negative); PH,Urine 6.5 pH Units (5.0-8.0); Protein,Urine Negative (Neg-Trace); Specific Gravity,Urine 1.021 (1.010-1.025); Urobilinogen,Urine Normal (Normal)
[2019-02-26 19:04] LABS: Amphetamine Screen,Urine Negative ng/mL (Cutoff=1000); Barbiturate Screen,Urine Negative ng/mL (Cutoff=200); Benzodiazepines Screen,Urine Negative ng/mL (Cutoff=200); Cannabinoid Screen,Urine Positive ng/mL (Cutoff = 50); Cocaine Screen,Urine Negative ng/mL (Cutoff= 300); Opiate Screen,Urine Negative ng/mL (Cutoff=300); Phencyclidine Screen,Urine Negative ng/mL (Cutoff=25)
[2019-02-26 19:08] LABS: Basophils % 0.2 %; Eosinophils # 0.1 K/mcL (0.0-0.6); Eosinophils % 1.3 %; Hematocrit 41.1 % (35.3-44.9); Immature Granulocytes % 0.3 % (0-4); Lymphocytes # 3.6 K/mcL (0.6-4.6); Lymphocytes % 32.2 %; Mean Corpuscular HGB Conc 34.1 g/dL (31.6-35.5); Mean Corpuscular Hemoglobin 31.5 pg (28.0-33.3); Mean Corpuscular Volume 92.4 fL (83.0-100.0); Mean Platelet Volume 10.6 fL (9.4-12.4); Monocytes # 0.6 K/mcL (0.0-1.3); Monocytes % 5.6 %; Neutrophils # 6.7 K/mcL (1.6-8.9); Platelet Count 193 K/mcL (140-400); Red Blood Count 4.45 M/mcL (3.82-4.97); Red Cell Distribution Width 12.5 % (11.5-14.5); Segmented Neutrophils % 60.4 %
[2019-02-26 19:32] LABS: Acetaminophen < 10 mcg/mL (10-20); BUN/Creatinine Ratio 12 (6-26); Blood Urea Nitrogen 10 mg/dL (6-20); Calcium 9.3 mg/dL (8.6-10.3); Carbon Dioxide 29 mEq/L (23-29); Chloride 106 mEq/L (98-107); Glucose 80 mg/dL (70-105); Osmolality,Calculated 288 (280-300); Potassium 3.8 mEq/L (3.5-5.1); Salicylate < 2.5 mg/dL (15.0-30.0); Sodium 140 mEq/L (136-145); eGFR For Non-African Americans > 60 (> 60)
--- NOTE | 2019-02-26 20:45 | Emergency Department Note ---
Disposition Clinical Impression: Bipolar disorder, Suicidal ideation Disposition: Still a Patient Condition: Fair Referrals: NONE,PCP [Primary Care Provider] - Forms: ED Satisfaction Letter Time of Disposition: 20:46 Psych HPI - General Chief Complaint: ED Psychiatric Symptoms Stated Complaint: SI Time Seen by Provider: 02/26/19 17:56 Source: patient Nursing Notes Reviewed: Yes Vital Signs Reviewed: Yes - Related Data Home Medications Medication Instructions Recorded Confirmed Aripiprazole [Abilify] 15 mg PO QPM 02/17/19 02/17/19 Sertraline [Zoloft] 75 mg PO DAILY 02/17/19 02/17/19 Previous Rx's Medication Instructions Recorded Buspirone HCl [Buspar] 7.5 mg PO BID #90 tablet 02/18/19 hydrOXYzine pamoate [HydrOXYzine 25 mg PO TID PRN capsule 02/18/19 Pamoate] Allergies Allergy/AdvReac Type Severity Reaction Status Date / Time No Known Allergies Allergy Verified 02/16/19 19:41 Past Medical History - Past Medical History Medical history: Reports: non-contributory Surgical history: Reports: non-contributory Psychiatric history: Reports: anxiety, depression, prior suicide attempt 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 - Social History Smoking Status: Current every day smoker Smokeless Tobacco Status: No Alcohol use: Reports: none Drug use: Reports: marijuana Physical Exam - General Limitations: no limitations General appearance: alert, in no apparent distress Course Vital Signs Temperature 98.3 F 02/26/19 17:25 Pulse Rate 91 02/26/19 17:25 Respiratory Rate 16 02/26/19 17:25 Blood Pressure 114/76 02/26/19 17:25 O2 Sat by Pulse Oximetry 96 02/26/19 17:25 Temperature 98.3 F 02/26/19 17:25 Pulse Rate 91 02/26/19 17:25 Respiratory Rate 16 02/26/19 17:25 Blood Pressure 114/76 02/26/19 17:25 O2 Sat by Pulse Oximetry 96 02/26/19 17:25 Oxygen Delivery Oxygen Delivery Room Air Psych - Lab Data Result diagrams: 02/26/19 18:58 02/26/19 18:58 Lab Results 02/26/19 02/26/19 02/26/19 Range/Units 18:02 18:02 18:02 WBC (4.3-11.1) K/mcL RBC (3.82-4.97) M/mcL Hgb (11.5-15.4) g/dL Hct (35.3-44.9) % MCV (83.0-100.0) fL MCH (28.0-33.3) pg MCHC (31.6-35.5) g/dL RDW (11.5-14.5) % Plt Count (140-400) K/mcL MPV (9.4-12.4) fL Immature Gran % (0-4) % Seg Neutrophils % % Lymphocytes % % Monocytes % % Eosinophils % % Basophils % % Neutrophils # (1.6-8.9) K/mcL Lymphocytes # (0.6-4.6) K/mcL Monocytes # (0.0-1.3) K/mcL Eosinophils # (0.0-0.6) K/mcL Basophils # (0.0-0.2) K/mcL Sodium (136-145) mEq/L Potassium (3.5-5.1) mEq/L Chloride (98-107) mEq/L Carbon Dioxide (23-29) mEq/L BUN (6-20) mg/dL Creatinine (0.60-1.20) mg/dL Est GFR ( Amer) (> 60) Est GFR (Non-Af Amer) (> 60) BUN/Creatinine Ratio (6-26) Glucose (70-105) mg/dL Calculated Osmolality (280-300) Calcium (8.6-10.3) mg/dL Urine Color Dark Yellow (Yellow) Urine Clarity Clear (Clear) Urine pH 6.5 (5.0-8.0) pH Units Ur Specific [place] 1.021 (1.010-1.025) Urine Protein Negative (Neg-Trace) mg/dL Urine Glucose (UA) Normal (Normal) mg/dL Urine Ketones Negative (Negative) mg/dL Urine Blood Negative (Negative) Urine Nitrite Negative (Negative) Urine Bilirubin Negative (Negative) Urine Urobilinogen Normal (Normal) mg/dL Ur Leukocyte Esterase Negative (Negative) Ur Culture Indicated? NO (NO) Urine Test Negative (Negative) Salicylates (15.0-30.0) mg/dL Urine Opiates Screen Negative (Yjzthk=335) ng/mL Acetaminophen (10-20) mcg/mL Ur Barbiturates Screen Negative (Rtxdyr=037) ng/mL Ur Phencyclidine Scrn Negative (Cutoff=25) ng/mL Ur Amphetamines Screen Negative (Vpmvst=8205) ng/mL U Benzodiazepines Scrn Negative (Qfpgkb=910) ng/mL Urine Cocaine Screen Negative (Cutoff= 300) ng/mL U Marijuana (THC) Screen Positive H (Cutoff = 50) ng/mL Ur Drug Screen Interp See Below 02/26/19 02/26/19 Range/Units 18:58 18:58 WBC 11.1 (4.3-11.1) K/mcL RBC 4.45 (3.82-4.97) M/mcL Hgb 14.0 (11.5-15.4) g/dL Hct 41.1 (35.3-44.9) % MCV 92.4 (83.0-100.0) fL MCH 31.5 (28.0-33.3) pg MCHC 34.1 (31.6-35.5) g/dL RDW 12.5 (11.5-14.5) % Plt Count 193 (140-400) K/mcL MPV 10.6 (9.4-12.4) fL Immature Gran % 0.3 (0-4) % Seg Neutrophils % 60.4 % Lymphocytes % 32.2 % Monocytes % 5.6 % Eosinophils % 1.3 % Basophils % 0.2 % Neutrophils # 6.7 (1.6-8.9) K/mcL Lymphocytes # 3.6 (0.6-4.6) K/mcL Monocytes # 0.6 (0.0-1.3) K/mcL Eosinophils # 0.1 (0.0-0.6) K/mcL Basophils # 0.0 (0.0-0.2) K/mcL Sodium 140 (136-145) mEq/L Potassium 3.8 (3.5-5.1) mEq/L Chloride 106 (98-107) mEq/L Carbon Dioxide 29 (23-29) mEq/L BUN 10 (6-20) mg/dL Creatinine 0.83 (0.60-1.20) mg/dL Est GFR ( Amer) > 60 (> 60) Est GFR (Non-Af Amer) > 60 (> 60) BUN/Creatinine Ratio 12 (6-26) Glucose 80 (70-105) mg/dL Calculated Osmolality 288 (280-300) Calcium 9.3 (8.6-10.3) mg/dL Urine Color (Yellow) Urine Clarity (Clear) Urine pH (5.0-8.0) pH Units Ur Specific [place] (1.010-1.025) Urine Protein (Neg-Trace) mg/dL Urine Glucose (UA) (Normal) mg/dL Urine Ketones (Negative) mg/dL Urine Blood (Negative) Urine Nitrite (Negative) Urine Bilirubin (Negative) Urine Urobilinogen (Normal) mg/dL Ur Leukocyte Esterase (Negative) Ur Culture Indicated? (NO) Urine Test (Negative) Salicylates < 2.5 L (15.0-30.0) mg/dL Urine Opiates Screen (Uwkusx=241) ng/mL Acetaminophen < 10 L (10-20) mcg/mL Ur Barbiturates Screen (Luztep=180) ng/mL Ur Phencyclidine Scrn (Cutoff=25) ng/mL Ur Amphetamines Screen (Kszybk=7188) ng/mL U Benzodiazepines Scrn (Uhzgiq=793) ng/mL Urine Cocaine Screen (Cutoff= 300) ng/mL U Marijuana (THC) Screen (Cutoff = 50) ng/mL Ur Drug Screen Interp Psychiatric Medical Clearance - Medical Clearance Checklist Medical History: No Social History Section defined Current Vitals: Last Vital Signs Temp 98.3 F 02/26/19 17:25 Pulse 91 02/26/19 17:25 Resp 16 02/26/19 17:25 BP 114/76 02/26/19 17:25 Pulse Ox 96 02/26/19 17:25 Psychiatric Lab Panel: Drug Levels and Toxicity 02/26/19 02/26/19 18:02 18:58 Urine Opiates Screen Negative Acetaminophen < 10 L Ur Barbiturates Screen Negative Ur Phencyclidine Scrn Negative Ur Amphetamines Screen Negative U Benzodiazepines Scrn Negative Urine Cocaine Screen Negative U Marijuana (THC) Screen Positive H Abnormal Labs: Abnormal lab results Salicylates < 2.5 mg/dL (15.0-30.0) L 02/26/19 18:58 Acetaminophen < 10 mcg/mL (10-20) L 02/26/19 18:58 U Marijuana (THC) Screen Positive ng/mL (Cutoff = 50) H 02/26/19 18:02 Statement of Medical Clearance: I have evaluated the patient, reviewed diagnostic information, and certify that the patient's medical condition is sufficiently stable that transfer to the psychiatric unit does not pose a significant risk of deterioration. Attestation Statement - Attestation Attestation: I have seen this patient with the resident physician, I have personally evaluated this patient. I had reviewed the chart and document dictation by the resident physician and aM in agreement with the information documented by the r delroyt physician. Please see documentation by the resident physician for complete chart including past medical history, family medical history, review of systems, current history and physical and laboratory and imaging studies. I was present for all procedures, provided direct supervision for all procedures, was present for the entirety of all procedures and provided direct guidance during the procedures. Please see documentation by the resident physician for any procedures performed. I have reviewed all interpretations of EKGs, and reviewed all EKGs performed on patient's as well. I have also reviewed reports of imaging as provided by radiology. Patient presents emergency Department with chief complaint of worsening symptoms of suicidality. Patient states that she was just admitted to the hospital last week, discharged with 2 new medications, which were Vistaril and BuSpar. She states that since being started on that she is having significantly vivid dreams and not sleeping very well waking up feeling worse with increased suicidal thoughts more in the morning. She does not have a specific plan on kill herself but she feels worse than when she was admitted last time. Patient states she needs help and wants to talk to the psychiatric intake team again discussed management. She denies current plan to hurt herself. She denies new hallucinations. She denies chest pain shortness with fevers chills cough sputum production or any other concerns. Basic laboratory studies for medical clearance were ordered all of these were within acceptable limits urine drugs positive for marijuana only salicylate Tylenol ethanol level undetectable. At the time of this dictation, the patient was pending psychiatric intake evaluation for further evaluation and management assistance. Please see documentation by my colleague for recommendations from psychiatric intake team, in regards to this patient.
--- NOTE | 2019-02-27 00:34 | Emergency Department Note ---
Disposition Clinical Impression: Suicidal ideation Bipolar disorder Qualifiers: Active/Remission status: remission status unspecified Qualified Code(s): F31.9 - Bipolar disorder, unspecified Disposition: Admitted As Inpatient Condition: Good Time of Disposition: 01:00 Psych HPI - General Chief Complaint: ED Psychiatric Symptoms Stated Complaint: SI Time Seen by Provider: 02/26/19 17:56 Source: patient Mode of arrival: ambulatory - History of Present Illness Duration: constant, getting worse Worsens with: medication Associated symptoms: Reports: denies other symptoms Treatments prior to arrival: none - Related Data Home Medications Medication Instructions Recorded Confirmed Aripiprazole [Abilify] 15 mg PO QPM 02/17/19 02/17/19 Sertraline [Zoloft] 75 mg PO DAILY 02/17/19 02/17/19 Previous Rx's Medication Instructions Recorded Buspirone HCl [Buspar] 7.5 mg PO BID #90 tablet 02/18/19 hydrOXYzine pamoate [HydrOXYzine 25 mg PO TID PRN capsule 02/18/19 Pamoate] Allergies Allergy/AdvReac Type Severity Reaction Status Date / Time No Known Allergies Allergy Verified 02/16/19 19:41 Past Medical History - Past Medical History Medical history: Reports: non-contributory Surgical history: Reports: non-contributory Psychiatric history: Reports: anxiety, depression, prior suicide attempt 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 Patient is waiting mental health evaluation. Patient was discharged after recent stay in and had additions of Vistaril and BuSpar. Patient has had vivid dreams and worsening thoughts of SI. Patient was evaluated by the mental health team and will be admitted for further evaluation and management. Vital Signs Temperature 98.3 F 02/26/19 17:25 Pulse Rate 91 02/26/19 17:25 Respiratory Rate 16 02/26/19 17:25 Blood Pressure 114/76 02/26/19 17:25 O2 Sat by Pulse Oximetry 96 02/26/19 17:25 Temperature 98.3 F 02/26/19 17:25 Pulse Rate 91 02/26/19 17:25 Respiratory Rate 16 02/26/19 17:25 Blood Pressure 114/76 02/26/19 17:25 O2 Sat by Pulse Oximetry 96 02/26/19 17:25 Oxygen Delivery Oxygen Delivery Room Air Psych - Lab Data Result diagrams: 02/26/19 18:58 02/26/19 18:58 Lab Results 02/26/19 02/26/19 02/26/19 Range/Units 18:02 18:02 18:02 WBC (4.3-11.1) K/mcL RBC (3.82-4.97) M/mcL Hgb (11.5-15.4) g/dL Hct (35.3-44.9) % MCV (83.0-100.0) fL MCH (28.0-33.3) pg MCHC (31.6-35.5) g/dL RDW (11.5-14.5) % Plt Count (140-400) K/mcL MPV (9.4-12.4) fL Immature Gran % (0-4) % Seg Neutrophils % % Lymphocytes % % Monocytes % % Eosinophils % % Basophils % % Neutrophils # (1.6-8.9) K/mcL Lymphocytes # (0.6-4.6) K/mcL Monocytes # (0.0-1.3) K/mcL Eosinophils # (0.0-0.6) K/mcL Basophils # (0.0-0.2) K/mcL Sodium (136-145) mEq/L Potassium (3.5-5.1) mEq/L Chloride (98-107) mEq/L Carbon Dioxide (23-29) mEq/L BUN (6-20) mg/dL Creatinine (0.60-1.20) mg/dL Est GFR ( Amer) (> 60) Est GFR (Non-Af Amer) (> 60) BUN/Creatinine Ratio (6-26) Glucose (70-105) mg/dL Calculated Osmolality (280-300) Calcium (8.6-10.3) mg/dL Urine Color Dark Yellow (Yellow) Urine Clarity Clear (Clear) Urine pH 6.5 (5.0-8.0) pH Units Ur Specific [place] 1.021 (1.010-1.025) Urine Protein Negative (Neg-Trace) mg/dL Urine Glucose (UA) Normal (Normal) mg/dL Urine Ketones Negative (Negative) mg/dL Urine Blood Negative (Negative) Urine Nitrite Negative (Negative) Urine Bilirubin Negative (Negative) Urine Urobilinogen Normal (Normal) mg/dL Ur Leukocyte Esterase Negative (Negative) Ur Culture Indicated? NO (NO) Urine Test Negative (Negative) Salicylates (15.0-30.0) mg/dL Urine Opiates Screen Negative (Cqeefq=078) ng/mL Acetaminophen (10-20) mcg/mL Ur Barbiturates Screen Negative (Vprkxr=401) ng/mL Ur Phencyclidine Scrn Negative (Cutoff=25) ng/mL Ur Amphetamines Screen Negative (Vorueh=3138) ng/mL U Benzodiazepines Scrn Negative (Qdjobt=286) ng/mL Urine Cocaine Screen Negative (Cutoff= 300) ng/mL U Marijuana (THC) Screen Positive H (Cutoff = 50) ng/mL Ur Drug Screen Interp See Below 02/26/19 02/26/19 Range/Units 18:58 18:58 WBC 11.1 (4.3-11.1) K/mcL RBC 4.45 (3.82-4.97) M/mcL Hgb 14.0 (11.5-15.4) g/dL Hct 41.1 (35.3-44.9) % MCV 92.4 (83.0-100.0) fL MCH 31.5 (28.0-33.3) pg MCHC 34.1 (31.6-35.5) g/dL RDW 12.5 (11.5-14.5) % Plt Count 193 (140-400) K/mcL MPV 10.6 (9.4-12.4) fL Immature Gran % 0.3 (0-4) % Seg Neutrophils % 60.4 % Lymphocytes % 32.2 % Monocytes % 5.6 % Eosinophils % 1.3 % Basophils % 0.2 % Neutrophils # 6.7 (1.6-8.9) K/mcL Lymphocytes # 3.6 (0.6-4.6) K/mcL Monocytes # 0.6 (0.0-1.3) K/mcL Eosinophils # 0.1 (0.0-0.6) K/mcL Basophils # 0.0 (0.0-0.2) K/mcL Sodium 140 (136-145) mEq/L Potassium 3.8 (3.5-5.1) mEq/L Chloride 106 (98-107) mEq/L Carbon Dioxide 29 (23-29) mEq/L BUN 10 (6-20) mg/dL Creatinine 0.83 (0.60-1.20) mg/dL Est GFR ( Amer) > 60 (> 60) Est GFR (Non-Af Amer) > 60 (> 60) BUN/Creatinine Ratio 12 (6-26) Glucose 80 (70-105) mg/dL Calculated Osmolality 288 (280-300) Calcium 9.3 (8.6-10.3) mg/dL Urine Color (Yellow) Urine Clarity (Clear) Urine pH (5.0-8.0) pH Units Ur Specific [place] (1.010-1.025) Urine Protein (Neg-Trace) mg/dL Urine Glucose (UA) (Normal) mg/dL Urine Ketones (Negative) mg/dL Urine Blood (Negative) Urine Nitrite (Negative) Urine Bilirubin (Negative) Urine Urobilinogen (Normal) mg/dL Ur Leukocyte Esterase (Negative) Ur Culture Indicated? (NO) Urine Test (Negative) Salicylates < 2.5 L (15.0-30.0) mg/dL Urine Opiates Screen (Gqryea=722) ng/mL Acetaminophen < 10 L (10-20) mcg/mL Ur Barbiturates Screen (Ezynwh=963) ng/mL Ur Phencyclidine Scrn (Cutoff=25) ng/mL Ur Amphetamines Screen (Tuljtn=1165) ng/mL U Benzodiazepines Scrn (Ezdugo=715) ng/mL Urine Cocaine Screen (Cutoff= 300) ng/mL U Marijuana (THC) Screen (Cutoff = 50) ng/mL Ur Drug Screen Interp Psychiatric Medical Clearance - Medical Clearance Checklist Medical History: No Social History Section defined Current Vitals: Last Vital Signs Temp 98.3 F 02/26/19 17:25 Pulse 91 02/26/19 17:25 Resp 16 02/26/19 17:25 BP 114/76 02/26/19 17:25 Pulse Ox 96 02/26/19 17:25 Psychiatric Lab Panel: Drug Levels and Toxicity 02/26/19 02/26/19 18:02 18:58 Urine Opiates Screen Negative Acetaminophen < 10 L Ur Barbiturates Screen Negative Ur Phencyclidine Scrn Negative Ur Amphetamines Screen Negative U Benzodiazepines Scrn Negative Urine Cocaine Screen Negative U Marijuana (THC) Screen Positive H Abnormal Labs: Abnormal lab results Salicylates < 2.5 mg/dL (15.0-30.0) L 02/26/19 18:58 Acetaminophen < 10 mcg/mL (10-20) L 02/26/19 18:58 U Marijuana (THC) Screen Positive ng/mL (Cutoff = 50) H 02/26/19 18:02 Statement of Medical Clearance: I have evaluated the patient, reviewed diagnostic information, and certify that the patient's medical condition is sufficiently stable that transfer to the psychiatric unit does not pose a significant risk of deterioration.
[2019-02-27] MEDS ORDERED: Haloperidol Lactate 5 MG/ML VIAL IM PRN (01:20)
[2019-02-27] MEDS ORDERED: MOM Conc 10 ML UD.LIQ PO PRN (01:20)
[2019-02-27] MEDS ORDERED: *HR* LORazepam 2 MG/ML VIAL IM PRN (01:20)
[2019-02-27] MEDS ORDERED: *HR* LORazepam 1 MG TABLET PO PRN (01:20)
[2019-02-27] MEDS ORDERED: Mag Hydrox/Al Hydrox/Simeth 30 ML UDC PO PRN (01:20)
[2019-02-27] MEDS ORDERED: Ibuprofen 400 MG TABLET PO PRN (01:20)
[2019-02-27] MEDS: Nicotine 21 MG PATCH.TD24 TD SCH (09:20)
--- NOTE | 2019-02-27 09:59 | Psychiatry History & Physical ---
Date of Encounter: 02/27/19 Time of Encounter: 09:15 History of Present Illness Patient Stated Chief Complaint: "I can't calm down and I'm feeling like cutting on myself again." Medicare Admission Attestation: For traditional Medicare patients the provided hospital inpatient services are reasonable and necessary and in the case of services not specified as inpatient-only under 42 CFR 419.22 (n), that they are appropriately provided as inpatient services in accordance 42 CFR 412.3. For Critical Access Hospital the patient may reasonably be expected to be discharged or transferred to a hospital within 96 hours after admission to the Critical Access Hospital. Admitted From: Emergency Dept Plans for Post Hospital Care: Home History of Present Illness: Ms. Burris is a 23 year old female Who was recently discharged from [facility] psychiatric unit. She has been feeling restless and uncomfortable for the past 6 days. She reports "weird dreams where I'm cutting on myself. I haven't cut on myself, but the desire is there. I feel like I want to . I just can't calm down. My leg is shaking all the time and I can't stop pacing." She reports a constant uneasy feeling that the Vistaril helps a little bit with, but never takes away completely. She is taking the maximum amount of Vistaril a day that she can. Then when the Vistaril is wearing off, it gets much worse again. She is feeling hopeless and helpless. She does not want to live like this and hence was having thoughts of suicide; cutting over overdose. She does not want to as she has a and 3 children that need her. She just wants to feel better and stable again. She denies elevated mood, A/V hallucinations, thought insertion/mind reading Past Med Surg Social Fam HX - Past Medical History Medical history: non-contributory - Past Psychiatric History Psychiatric history: Reports: anxiety, depression, prior suicide attempt, previous psychiatric hospitalization Past psychiatric history details: Long standing inpatient and outpatient treatment Family psychiatric history: Yes (Mother: depression) Family History of Suicide: Attempted - Past Surgical History Surgical History: non-contributory - Social History Smoking Status: Current every day smoker Smokeless Tobacco Status: No Alcohol use: none Drug use: marijuana Medications & Allergies Buspirone HCl [Buspar] 7.5 mg PO BID #90 tablet 02/18/19 [Rx] hydrOXYzine pamoate [HydrOXYzine Pamoate] 25 mg PO TID PRN capsule 02/18/19 [Rx] Allergy/AdvReac Type Severity Reaction Status Date / Time No Known Allergies Allergy Verified 02/16/19 19:41 Review of Systems Psychiatric: Reports: depression, suicidal ideation, hopelessness, irritability Exam - HEENT Head exam IM: Present: atraumatic Eye exam IM: Present: EOMI - Neurological Neurological exam: Present: CN II-XII intact (perED eval) - Constitutional Vitals: Temp Pulse Resp BP Pulse Ox 98.3 F 91 16 114/76 96 02/26/19 17:25 02/26/19 17:25 02/26/19 17:25 02/26/19 17:25 02/26/19 17:25 General appearance: age & developmentally appropriate, well-nourished - Musculoskeletal Gait: normal Station: shaky Strength & Tone: other (Nervously tapping her right leg) - Psychiatric Patient Orientation: Yes Person, Yes Time, Yes Place, Yes Circumstance Level of alertness: Follows commands Behavior: anxious, restless Psychomotor activity: Repetitive movements (tapping leg) Eye Contact: Maintains Eye Contact Mood Description: Anxious Affect description: congruent with mood Speech Volume: Normal Speech pattern: normal rate, normal rhythm, normal tone, fluent Language & Vocabulary: consistent with education Thought Process: Intact Thought Content: Yes Suicidal ideation Attention Span Ability: Capable of Focused Attention Memory Description: Grossly Intact Patient Reliability: Reliable Historian Fund of knowledge: Yes abstraction ability Intelligence Estimate: Average Judgment: Good Insight: Partial Results - Drug Levels and Toxicology Drug Levels and Toxicology: Drug Levels and Toxicity 02/26/19 02/26/19 18:02 18:58 Urine Opiates Screen Negative Acetaminophen < 10 L Ur Barbiturates Screen Negative Ur Phencyclidine Scrn Negative Ur Amphetamines Screen Negative U Benzodiazepines Scrn Negative Urine Cocaine Screen Negative U Marijuana (THC) Screen Positive H - Labs Labs: Laboratory Last Values WBC 11.1 K/mcL (4.3-11.1) 02/26/19 18:58 RBC 4.45 M/mcL (3.82-4.97) 02/26/19 18:58 Hgb 14.0 g/dL (11.5-15.4) 02/26/19 18:58 Hct 41.1 % (35.3-44.9) 02/26/19 18:58 MCV 92.4 fL (83.0-100.0) 02/26/19 18:58 MCH 31.5 pg (28.0-33.3) 02/26/19 18:58 MCHC 34.1 g/dL (31.6-35.5) 02/26/19 18:58 RDW 12.5 % (11.5-14.5) 02/26/19 18:58 Plt Count 193 K/mcL (140-400) 02/26/19 18:58 MPV 10.6 fL (9.4-12.4) 02/26/19 18:58 Immature Gran % 0.3 % (0-4) 02/26/19 18:58 Seg Neutrophils % 60.4 % 02/26/19 18:58 32.2 % 02/26/19 18:58 5.6 % 02/26/19 18:58 1.3 % 02/26/19 18:58 0.2 % 02/26/19 18:58 6.7 K/mcL (1.6-8.9) 02/26/19 18:58 3.6 K/mcL (0.6-4.6) 02/26/19 18:58 0.6 K/mcL (0.0-1.3) 02/26/19 18:58 0.1 K/mcL (0.0-0.6) 02/26/19 18:58 0.0 K/mcL (0.0-0.2) 02/26/19 18:58 Sodium 140 mEq/L (136-145) 02/26/19 18:58 Potassium 3.8 mEq/L (3.5-5.1) 02/26/19 18:58 Chloride 106 mEq/L (98-107) 02/26/19 18:58 Carbon Dioxide 29 mEq/L (23-29) 02/26/19 18:58 BUN 10 mg/dL (6-20) 02/26/19 18:58 0.83 mg/dL (0.60-1.20) 02/26/19 18:58 Est GFR ( Amer) > 60 (> 60) 02/26/19 18:58 Est GFR (Non-Af Amer) > 60 (> 60) 02/26/19 18:58 12 (6-26) 02/26/19 18:58 Glucose 80 mg/dL (70-105) 02/26/19 18:58 288 (280-300) 02/26/19 18:58 Calcium 9.3 mg/dL (8.6-10.3) 02/26/19 18:58 Dark Yellow (Yellow) 02/26/19 18:02 Clear (Clear) 02/26/19 18:02 6.5 pH Units (5.0-8.0) 02/26/19 18:02 Ur Specific [place] 1.021 (1.010-1.025) 02/26/19 18:02 Negative mg/dL (Neg-Trace) 02/26/19 18:02 Normal mg/dL (Normal) 02/26/19 18:02 Negative mg/dL (Negative) 02/26/19 18:02 Negative (Negative) 02/26/19 18:02 Negative (Negative) 02/26/19 18:02 Negative (Negative) 02/26/19 18:02 Normal mg/dL (Normal) 02/26/19 18:02 Ur Leukocyte Esterase Negative (Negative) 02/26/19 18:02 Ur Culture Indicated? NO (NO) 02/26/19 18:02 Negative (Negative) 02/26/19 18:02 Salicylates < 2.5 mg/dL (15.0-30.0) L 02/26/19 18:58 Negative ng/mL (Xdbcpc=036) 02/26/19 18:02 Acetaminophen < 10 mcg/mL (10-20) L 02/26/19 18:58 Ur Barbiturates Screen Negative ng/mL (Xxixzv=720) 02/26/19 18:02 Ur Phencyclidine Scrn Negative ng/mL (Cutoff=25) 02/26/19 18:02 Ur Amphetamines Screen Negative ng/mL (Gvnoyy=7278) 02/26/19 18:02 U Benzodiazepines Scrn Negative ng/mL (Frcfph=453) 02/26/19 18:02 Negative ng/mL (Cutoff= 300) 02/26/19 18:02 U Marijuana (THC) Screen Positive ng/mL (Cutoff = 50) H 02/26/19 18:02 Ur Drug Screen Interp See Below 02/26/19 18:02 Assessment and Plan (1) Major depress dis, severe Current visit: No Status: Acute Plan: Admit inpatient for safety and stabilization, Close observation, Suicide Precautions per unit protocol, Encourage participation in unit milieu, Group Therapy, Monitor sleep, Monitor appetite Risks, benefits, side effects, alternatives discussed w/pt: Yes Patient agreeable to treatment: Yes Plans for Post Hospital Care: Home Estimated Length of Stay (Days): 5 (2) Anesthesia Current visit: Yes Status: Acute Plan: Admit inpatient for safety and stabilization, Close observation, Suicide Precautions per unit protocol Risks, benefits, side effects, alternatives discussed w/pt: Yes (Cogentin 1 mg po bid targeting uneasy feeling) Patient agreeable to treatment: Yes Plans for Post Hospital Care: Home Estimated Length of Stay (Days): 5
[2019-02-27] MEDS: ARIPiprazole 10 MG TABLET PO SCH (11:12)
[2019-02-27] MEDS: traZODone 50 MG TABLET PO PRN (21:08)
[2019-02-27] MEDS: hydrOXYzine pamoate 25 MG CAPSULE PO PRN (21:08)
[2019-02-28] MEDS: ARIPiprazole 10 MG TABLET PO SCH (08:39)
[2019-02-28] MEDS: Nicotine 21 MG PATCH.TD24 TD SCH (08:41)
--- NOTE | 2019-02-28 11:28 | Psychiatry Progress Note ---
Date of Encounter: 02/28/19 Time of Encounter: 11:10 Subjective Interval history: Patient reports "I feel like I am not as shaky as much and less angry". She states that she slept last night for 10 hours she states that she did have a weird dream again about cutting on herself. But the urge to cut has decreased, although it is still there. She states that if she felt like cutting on herself or hurting herself she would tell staff. That is why she is here, "to get better and not myself." She feels the initiation of Cogentin was helpful. She took an extra PRN dose yesterday. We discussed increasing the regular scheduled dose to 3 times a day instead of twice a day and she was agreeable to this. She states that she still feeling depressed and like she is not mentally stable yet overall. We discussed continuing to try and get the possible akathisia under control first, and then target the mood more as her mood is better with the Cogentin. We are considering a decrease in the Abilify back to 10 mg where she was prior to her last admission. Then increase her Zoloft targeting the depressive symptoms. She states that she would like to look at that potentially tomorrow and just see how the increased dose of Cogentin works today. She is functioning on the unit. She is interacting with other patients and staff appropriately. She is future oriented to getting better. She denies any active SI. She denies any auditory or visual hallucinations or psychosis. She is eating fine and has no other complaints. Review of Systems Psychiatric: Reports: depression, suicidal ideation, hopelessness, irritability Results - Vital Signs Vital Signs: Temp Pulse Resp BP Pulse Ox 98.2 F 81 16 115/78 98 02/28/19 08:56 02/28/19 08:56 02/28/19 08:56 02/28/19 08:56 02/28/19 08:56 Assessment and Plan (1) Major depress dis, severe Current visit: No Status: Acute Plan: Continue hospitalization, Close observation, Suicide Precautions per unit protocol, Encourage participation in unit milieu, Monitor sleep, Monitor appetite Risks, benefits, side effects, alternatives discussed w/pt: Yes (Increase Cogetnin 1 mg to TID ) Patient agreeable to treatment: Yes (2) Anesthesia Current visit: Yes Status: Acute Risks, benefits, side effects, alternatives discussed w/pt: Yes (Cogentin 1 mg po bid targeting uneasy feeling) Patient agreeable to treatment: Yes Consult Discharge Plan - Plan Referrals: NONE,PCP [Primary Care Provider] - Psychiatry Exam - Constitutional Vitals: Temp Pulse Resp BP Pulse Ox 98.2 F 81 16 115/78 98 02/28/19 08:56 02/28/19 08:56 02/28/19 08:56 02/28/19 08:56 02/28/19 08:56 General appearance: age & developmentally appropriate, well-groomed, well-n ourished - Musculoskeletal Gait: normal Station: shaky (much less than yesterday. No leg shaking or taping.) Strength & Tone: normal for patient - Psychiatric Patient Orientation: Yes Person, Yes Time, Yes Place, Yes Circumstance Level of alertness: Alert Behavior: cooperative Psychomotor activity: Normal Eye Contact: Maintains Eye Contact Mood Description: Anxious (mildly) Affect description: congruent with mood Speech Volume: Normal Speech pattern: normal rate, normal rhythm, normal tone, fluent Language & Vocabulary: consistent with education Thought Process: Intact, Linear, Goal Oriented Thought Content: Yes Suicidal ideation (decreased) Attention Span Ability: Capable of Focused Attention Memory Description: Grossly Intact Patient Reliability: Reliable Historian Fund of knowledge: Yes abstraction ability Intelligence Estimate: Average Judgment: Fair Insight: Partial
[2019-02-28] MEDS: traZODone 50 MG TABLET PO PRN (20:54)
[2019-02-28] MEDS: hydrOXYzine pamoate 25 MG CAPSULE PO PRN (20:54)
[2019-03-01] MEDS: ARIPiprazole 10 MG TABLET PO SCH ×2 (08:30→09:01)
[2019-03-01] MEDS: Nicotine 21 MG PATCH.TD24 TD SCH (08:32)
--- NOTE | 2019-03-01 08:52 | Psychiatry Progress Note ---
Date of Encounter: 03/01/19 Time of Encounter: 08:45 Subjective Interval history: PAtient states her sleep was improved last evening. She still feels anxiety and has thoughts of cutting on herself and pending doom. She feels the Cogentin is helping, but wants to decrease the Abilify back to 10 mg and increase the Zoloft targeting her anxiety. She has decreased thoughts of suicide but still does not feel back to baseline. "I feel better than I did, but not right." Nightmare last evening was less intense and she was able to go back to restful sleep without resuming the nightmare. Review of Systems Psychiatric: Reports: depression, suicidal ideation, hopelessness, irritability Results - Vital Signs Vital Signs: Temp Pulse Resp BP Pulse Ox 98.0 F 71 14 113/77 99 02/28/19 21:00 02/28/19 21:00 02/28/19 21:00 02/28/19 21:00 02/28/19 21:00 Assessment and Plan (1) Major depress dis, severe Current visit: No Status: Acute Risks, benefits, side effects, alternatives discussed w/pt: Yes (Decrease Abilify to 10 mg and increase Zoloft to 100 mg) Patient agreeable to treatment: Yes (2) Akathisia Current visit: Yes Status: Acute Plan: Continue hospitalization, Close observation Consult Discharge Plan - Plan Referrals: NONE,PCP [Primary Care Provider] - Psychiatry Exam - Constitutional Vitals: Temp Pulse Resp BP Pulse Ox 98.0 F 71 14 113/77 99 02/28/19 21:00 02/28/19 21:00 02/28/19 21:00 02/28/19 21:00 02/28/19 21:00 General appearance: age & developmentally appropriate, well-groomed, well- nourished - Musculoskeletal Gait: normal Station: stiff (mildly) Strength & Tone: normal for patient - Psychiatric Patient Orientation: Yes Person, Yes Time, Yes Place, Yes Circumstance Level of alertness: Alert Behavior: anxious (mildly) Psychomotor activity: Normal Eye Contact: Maintains Eye Contact Mood Description: Anxious Affect description: congruent with mood Speech Volume: Normal Speech pattern: normal rate, normal rhythm, normal tone, fluent Language & Vocabulary: consistent with education Thought Process: Intact, Linear, Goal Oriented Thought Content: Yes Suicidal ideation (Thoughts of cutting, but decreased SI) Attention Span Ability: Capable of Focused Attention Memory Description: Grossly Intact Patient Reliability: Reliable Historian Fund of knowledge: Yes abstraction ability Intelligence Estimate: Average Judgment: Good Insight: Partial
[2019-03-01] MEDS: traZODone 50 MG TABLET PO PRN (20:41)
[2019-03-02] MEDS: ARIPiprazole 10 MG TABLET PO SCH (09:13)
[2019-03-02] MEDS: Nicotine 21 MG PATCH.TD24 TD SCH (09:14)
--- NOTE | 2019-03-02 10:29 | Psychiatry Progress Note ---
Date of Encounter: 03/02/19 Time of Encounter: 10:15 Subjective Interval history: When asked the patient how she was feeling she stated "I did not have a bad dreams last night". She states that she only woke up once in the night and went right back to sleep. She tells me this is the 1st time in 6 nights that she did not have bad dreams. Patient states that she continues to be anxious often, but describes an incident yesterday after reporting this to a unit nurse and the nurse making a comment back to her about her anxiety. She said that the nurse replied to her in a demeaning manner, "you are going to be anxious forever". Patient states that she took that as a statement of being hopeless that this was never going to improve. She said that she had thoughts of cutting on herself after that, as she felt sweaty and panicked. Patient denies any active SI at this time she has no other complaints on the unit. Patient denies any issues with constipation. She is now starting to think that to BuSpar was what was causing her nightmares as she has been off the BuSpar. We talked about her decreased dose of Abilify with the Cogentin and not having the akathisia any longer. We spoke too of the increased dose of Zoloft targeting her anxiety/depression. She thinks this was a good idea to make these medication changes. She still concerned about breakthrough anxiety during the day. I encouraged her to do trials of Vistaril 25 mg PO TID PRN which she has ordered already to see if that helps. I reiterated to her that it may cause issue with constipation or feeling more "dried out" as she is already taking Cogentin which has similar side effects. She said she would give it a try today, if needed, to see if it helped, and she would report back to me tomorrow. (She did fill a comment card about the interaction with the nurse last evening, which I will take and turnover to the unit nursing welfare supervisor.) Review of Systems Psychiatric: Reports: depression, suicidal ideation, hopelessness, irritability Results - Vital Signs Vital Signs: Temp Pulse Resp BP Pulse Ox 97.8 F 98 16 122/82 92 03/02/19 08:38 03/02/19 08:38 03/02/19 08:38 03/02/19 08:38 03/02/19 08:38 Assessment and Plan (1) Major depress dis, severe Current visit: No Status: Acute Plan: Continue hospitalization, Close observation, Suicide Precautions per unit protocol, Encourage participation in unit milieu, Group Therapy, Monitor sleep Risks, benefits, side effects, alternatives discussed w/pt: Yes (Decrease Abilify to 10 mg and increase Zoloft to 100 mg) Patient agreeable to treatment: Yes (2) Akathisia Current visit: Yes Status: Acute Consult Discharge Plan - Plan Referrals: [facility] [place] [Outside] Psychiatry Exam - Constitutional Vitals: Temp Pulse Resp BP Pulse Ox 97.8 F 98 16 122/82 92 03/02/19 08:38 03/02/19 08:38 03/02/19 08:38 03/02/19 08:38 03/02/19 08:38 General appearance: age & developmentally appropriate, well-groomed, well-nou rished - Musculoskeletal Gait: normal Station: stiff Strength & Tone: normal for patient - Psychiatric Patient Orientation: Yes Person, Yes Time, Yes Place, Yes Circumstance Level of alertness: Alert, Follows commands Behavior: anxious, tearful (tearful when talking about the nurses response to her last evening) Psychomotor activity: Normal Eye Contact: Maintains Eye Contact Mood Description: Anxious Affect description: congruent with mood Speech Volume: Normal Speech pattern: normal rate, normal rhythm, normal tone, fluent Language & Vocabulary: consistent with education Thought Process: Intact, Linear, Goal Oriented Thought Content: Yes Suicidal ideation ({Passive thoughts of cutting on herself last evening after reported incident with the nurse.) Attention Span Ability: Capable of Focused Attention Memory Description: Grossly Intact Patient Reliability: Reliable Historian Fund of knowledge: Yes average Intelligence Estimate: Average Judgment: Good Insight: Partial
[2019-03-02] MEDS: hydrOXYzine pamoate 25 MG CAPSULE PO PRN ×2 (13:27→19:37)
[2019-03-02] MEDS: traZODone 50 MG TABLET PO PRN (21:03)
[2019-03-03] MEDS: ARIPiprazole 10 MG TABLET PO SCH (08:17)
[2019-03-03] MEDS: Nicotine 21 MG PATCH.TD24 TD SCH (08:17)
--- NOTE | 2019-03-03 08:25 | Psychiatry Progress Note ---
Date of Encounter: 03/03/19 Time of Encounter: 08:00 Subjective Interval history: Patient tells me "It helped me", referring to the prn of Vistaril. "I think the dreams are over. I haven't had one in two nights." She states she is feeling more settled in her mood. No thoughts of cutting yesterday but she did have a thought of killing herself when she had a confrontation with a nurse that she had issue with the day before. She feels less agitated and better able to handle/control herself and her emotions. She feels the decrease in Abilify with the increase in Zoloft helped. She continues to have regular bowel movements. She wants to see how today goes with taking the Vistaril prn and going to groups. She feels she is getting closer to being stable for discharge. No A/V hallucinations. No Active SI. Review of Systems Psychiatric: Reports: depression, suicidal ideation, hopelessness, irritability Results - Vital Signs Vital Signs: Temp Pulse Resp BP Pulse Ox 99.2 F 84 16 130/86 97 03/02/19 20:11 03/02/19 20:11 03/02/19 20:11 03/02/19 20:11 03/02/19 20:11 Assessment and Plan (1) Major depress dis, severe Current visit: No Status: Acute Plan: Continue hospitalization, Close observation, Suicide Precautions per unit protocol, Group Therapy, Monitor sleep Risks, benefits, side effects, alternatives discussed w/pt: Yes (Continue medications as written) Patient agreeable to treatment: Yes (2) Akathisia Current visit: Yes Status: Acute Risks, benefits, side effects, alternatives discussed w/pt: Yes Patient agreeable to treatment: Yes (resolved) Consult Discharge Plan - Plan Referrals: [facility] [place] [Outside] Psychiatry Exam - Constitutional Vitals: Temp Pulse Resp BP Pulse Ox 99.2 F 84 16 130/86 97 03/02/19 20:11 03/02/19 20:11 03/02/19 20:11 03/02/19 20:11 03/02/19 20:11 General appearance: age & developmentally appropriate, well-groomed, well- nourished - Musculoskeletal Gait: normal Station: relaxed Strength & Tone: normal for patient - Psychiatric Patient Orientation: Yes Person, Yes Time, Yes Place, Yes Circumstance Level of alertness: Alert Behavior: calm, cooperative Psychomotor activity: Normal Eye Contact: Maintains Eye Contact Mood Description: Euthymic/stable Affect description: congruent with mood Speech Volume: Normal Speech pattern: normal rate, normal rhythm, normal tone, fluent Language & Vocabulary: consistent with education Thought Process: Intact, Goal Oriented Thought Content: Yes Intact Attention Span Ability: Capable of Focused Attention Memory Description: Grossly Intact Patient Reliability: Reliable Historian Fund of knowledge: Yes abstraction ability Intelligence Estimate: Average Judgment: Good Insight: Full
[2019-03-03] MEDS: hydrOXYzine pamoate 25 MG CAPSULE PO PRN ×3 (09:04→18:01)
[2019-03-03] MEDS: traZODone 50 MG TABLET PO PRN (20:54)
[2019-03-04] MEDS: Nicotine 21 MG PATCH.TD24 TD SCH (09:03)
[2019-03-04] MEDS: hydrOXYzine pamoate 25 MG CAPSULE PO PRN (09:04)
[2019-03-04] MEDS: ARIPiprazole 10 MG TABLET PO SCH (09:04)
[2019-03-04 09:21] VITALS: BP 111/74
--- NOTE | 2019-03-04 10:38 | Discharge Summary ---
Date of Encounter: 03/04/19 Time of Encounter: 10:20 Diagnosis - Discharge Diagnosis (1) Major depress dis, severe Status: Acute (2) Akathisia Status: Acute Medications - Discharge Medications Prescriptions: Benztropine [Cogentin] 1 mg PO TID 30 Days #90 tablet hydrOXYzine pamoate [HydrOXYzine Pamoate] 25 mg PO TID PRN 30 Days #90 capsule PRN Reason: Anxiety Sertraline [Zoloft] 100 mg PO DAILY 30 Days #30 tablet hydrOXYzine pamoate [HydrOXYzine Pamoate] 25 mg PO TID PRN capsule 02/18/19 [Rx] ARIPiprazole [Abilify] 10 mg PO DAILY 02/27/19 [History] ARIPiprazole [Abilify] 10 mg PO DAILY 30 Days #0 tablet 03/04/19 [Rx] Benztropine [Cogentin] 1 mg PO TID 30 Days #90 tablet 03/04/19 [Rx] Sertraline [Zoloft] 100 mg PO DAILY 30 Days #30 tablet 03/04/19 [Rx] hydrOXYzine pamoate [HydrOXYzine Pamoate] 25 mg PO TID PRN 30 Days #90 capsule 03/04/19 [Rx] Allergy/AdvReac Type Severity Reaction Status Date / Time No Known Allergies Allergy Verified 02/27/19 13:06 Results Procedures and tests throughout hospitalization: Completed Lab Orders Category Date Time Status Acetaminophen Stat Lab 02/26/19 18:58 Completed Basic Metabolic Panel Stat Lab 02/26/19 18:58 Completed Complete Blood Count [HEME] Stat Lab 02/26/19 18:58 Completed Drug Screen, Urine [UCHEM] Stat Lab 02/26/19 18:02 Completed Test Result, Urine [URIN] Stat Lab 02/26/19 18:02 Completed Salicylate Stat Lab 02/26/19 18:58 Completed Urinalysis Reflex Cult & Micro [URIN] Stat Lab 02/26/19 18:02 Completed Provider Date of admission: 02/27/19 09:54 Primary care physician: PCP NONE Psychiatry Exam - Constitutional Vitals: Temp Pulse Resp BP Pulse Ox 98.3 F 101 16 111/74 98 03/04/19 09:00 03/04/19 09:00 03/04/19 09:00 03/04/19 09:03/04/19 09:00 General appearance: age & developmentally appropriate - Musculoskeletal Gait: normal Station: relaxed Strength & Tone: normal for patient - Psychiatric Patient Orientation: Yes Person, Yes Time, Yes Place, Yes Circumstance Level of alertness: Alert Behavior: calm, cooperative Psychomotor activity: Normal Eye Contact: Maintains Eye Contact Mood Description: Euthymic/stable Affect description: congruent with mood Speech Volume: Normal Speech pattern: normal rate, normal rhythm, normal tone, fluent Language & Vocabulary: consistent with education Thought Process: Intact, Logical, Linear, Goal Oriented Thought Content: Yes Intact Attention Span Ability: Capable of Focused Attention Memory Description: Grossly Intact Patient Reliability: Reliable Historian Fund of knowledge: Yes average Intelligence Estimate: Average Judgment: Good Insight: Full Hospital Course Hospital course: Ms. Burris is a 23 year old female who was admitted to [facility] psychiatric unit after a medical clearance in the emergency department. Patient reviewed her current issues and history of treatment with myself in her intake. It was concerning that she was unable to relax and felt uncomfortable, was feeling angry and agitated constantly and her Buspar and Vistaril was not helping. She recently had an increase in her Abilify to 15 mg from 10 mg. She was having intrusive thoughts of cutting on herself or killing herself secondary to her discomfort. She was also having nightmares there causing her wanting to cut on herself. We discussed making medication changes and I reviewed the possibility of EPS or akathisia with the patient, being a side effect of the Abilify. She was started on Cogentin 1 mg to see if it helped. She did notice a slight decrease in the agitation but still felt tight and uncomfortable. The Cogentin was titrated up to 1 mg 3 times a day and the Abilify dose was decreased back to 10 mg. She noted increased relief with these mediation changes. She was noted with her extensive history of depression and anxiety, but her dose of Zoloft was still at a relatively low dose. We discussed increasing her Zoloft targeting the serotonin receptors. She was receptive to this and agreed to it. For the first several nights on the unit, she continued to have nightmares and have difficulty sleeping. The BuSpar had not been renewed. She thought that it may be the issue contributing to her bad dreams but was unsure. As her treatment days progressed, she slowly had decreased thoughts of self harm. She did have a conflict she with one of the nighttime nurses that triggered thoughts to cut herself, but did not. She found her prn's of Vistaril t be more effective now with her periodic anxiety. Her sleep improved to the point that two night's prior to discharge she had no nightmares. She had no thoughts of cutting on herself or hurting herself. She felt her body was able to relax she denied any side effects with any the medication changes. She was no longer feeling anxious and depressed. She talked about being able to function on the new medications and feeling much better; feeling safe to discharge home. We discussed her outpatient therapy, which she is scheduled for to do some DBT therapy to help with her anxiety and her coping skills. She states that she had planned to do this as her therapist had suggested previously. She was looking forward to gaining other coping skills. While on the unit she participated with direct therapist and all the programming that was offered and did well. She interacted with other peers well and with staff appropriately. When confronted with a situation where she did not get along with the evening nurse, she filled out a complaint form which was then given to the nurse pbx manager on the unit. This showed the patient was able to cope effectively with the situation and also another sign of her improvement. The day of discharge, she denied any suicidal/homicidal ideation. She denied any auditory or visual hallucinations. She slept throughout the whole night bef ore discharge without any nightmares. She was hopeful and felt empowered to go home see her therapist, keep her follow-up appointments feeling as though she was stable and back on the right track. Time spent discussing smoking cessation with patient: 3 to 10 minutes Does patient wish to continue nicotine replacement upon disc: No - Time Spent with Patient Total time spent providing and/or coordinating discharge services: 20 min Less than 30 minutes Assessment and Plan - Patient/Caregiver Discharge Instructions Activity: resume usual activities as tolerated Diet: regular diet - Follow up Plan Follow up with: [facility] [Other] - 03/12/19 2:00 pm (On February you will have appointments with both your therapist and the nurse/doctor: You have an appointment scheduled on February at 3:00 PM with [facility]. You have an appointment scheduled for February at 2:[address] Wellington for medication management. You will also see the nurse during this time. Please contact the office at least 24 hours in advance if you are unable to keep your appointment(s). ) Functional capacity at discharge: independent ambulation Overall status at discharge: Stable Disposition: Home, Self-Care Quality - Multiple Antipsychotics Patient discharged on 2 or more antipsychotic medications: No Procedures - Procedures Procedures: Medication Management, Crisis Stabilization, Supportive Therapy, Group Therapy, Psychoeducational Therapy
== END 2019-03-04 11:50 | disposition home or self-care (01) | DRG 751 ==
LOC: 1ANU 17:22 → EMEROOARM 17:22 → 1ANU 02-27 01:30
PROVIDERS: ADMIT Psychiatry & Neurology Psychiatry; ATTEND Psychiatry & Neurology Psychiatry

== ENCOUNTER 2020-02-01 17:10 | Inpatient (IN) ==
[2020-02-01 17:47] LABS: Basophils % 0.2 %; Eosinophils # 0.1 K/mcL (0.0-0.6); Eosinophils % 1.1 %; Hematocrit 45.9 % (35.3-44.9); Hemoglobin 15.6 g/dL (11.5-15.4); Immature Granulocytes % 0.3 % (0-4); Lymphocytes # 3.5 K/mcL (0.6-4.6); Lymphocytes % 35.4 %; Mean Corpuscular Hemoglobin 31.1 pg (28.0-33.3); Mean Corpuscular Volume 91.4 fL (83.0-100.0); Mean Platelet Volume 10.3 fL (9.4-12.4); Monocytes # 0.6 K/mcL (0.0-1.3); Monocytes % 5.6 %; Neutrophils # 5.7 K/mcL (1.6-8.9); Platelet Count 209 K/mcL (140-400); Red Blood Count 5.02 M/mcL (3.82-4.97); Red Cell Distribution Width 12.8 % (11.5-14.5); Segmented Neutrophils % 57.4 %; White Blood Count 9.8 K/mcL (4.3-11.1)
[2020-02-01 17:53] LABS: Bilirubin,Urine Negative (Negative); Blood,Urine Negative (Negative); Clarity,Urine Turbid (Clear); Color,Urine Yellow (Yellow); Glucose,Urine (UA) Normal (Normal); Ketones,Urine Negative (Negative); Leukocyte Esterase,Urine Trace (Negative); Nitrite,Urine Negative (Negative); PH,Urine 7.5 pH Units (5.0-8.0); Protein,Urine Negative (Neg-Trace); Urobilinogen,Urine Normal (Normal)
[2020-02-01 17:56] LABS: Bacteria,Urine None Seen per hpf (None-Few); Hyaline Casts,Urine None Seen per lpf (None-Few); WBC,Urine 0-3 per hpf (0-3)
[2020-02-01 18:07] LABS: Acetaminophen < 10 mcg/mL (10-20); BUN/Creatinine Ratio 14 (6-26); Blood Urea Nitrogen 10 mg/dL (6-20); Calcium 9.3 mg/dL (8.6-10.3); Carbon Dioxide 23 mEq/L (23-29); Chloride 107 mEq/L (98-107); Ethanol < 10 mg/dL (Less than 10); Glucose 101 mg/dL (70-105); Osmolality,Calculated 289 (280-300); Potassium 3.7 mEq/L (3.5-5.1); Salicylate < 2.5 mg/dL (15.0-30.0); Sodium 140 mEq/L (136-145); eGFR For African Americans > 60 (> 60); eGFR For Non-African Americans > 60 (> 60)
[2020-02-01 18:16] LABS: Amphetamine Screen,Urine Negative ng/mL (Cutoff=1000); Barbiturate Screen,Urine Negative ng/mL (Cutoff=200); Benzodiazepines Screen,Urine Negative ng/mL (Cutoff=200); Cannabinoid Screen,Urine Positive ng/mL (Cutoff = 50); Cocaine Screen,Urine Negative ng/mL (Cutoff= 300); Opiate Screen,Urine Negative ng/mL (Cutoff=300); Phencyclidine Screen,Urine Negative ng/mL (Cutoff=25)
[2020-02-01 18:23] LABS: Amorphous Sediment,Urine Many per hpf (Few); Squamous Epithelial Cell,Urine Few per lpf (None-Few)
[2020-02-01] MEDS ORDERED: MOM Conc 10 ML UD.LIQ PO PRN (19:29)
[2020-02-01] MEDS ORDERED: Mag Hydrox/Al Hydrox/Simeth 30 ML UDC PO PRN (19:29)
[2020-02-01] MEDS ORDERED: *HR* LORazepam 1 MG TABLET PO PRN (19:29)
[2020-02-01] MEDS ORDERED: Acetaminophen 325 MG TABLET PO PRN (19:29)
[2020-02-01] MEDS ORDERED: Haloperidol Lactate 5 MG/ML VIAL IM PRN (19:29)
[2020-02-01] MEDS ORDERED: haloperidoL 5 MG TABLET PO PRN (19:29)
[2020-02-01] MEDS ORDERED: *HR* LORazepam 2 MG/ML VIAL IM PRN (19:29)
[2020-02-01] MEDS: traZODone 50 MG TABLET PO PRN (20:30)
[2020-02-02] MEDS: Nicotine 21 MG PATCH.TD24 TD SCH (08:39)
[2020-02-02] MEDS: Ondansetron ODT 4 MG TAB.RAPDIS SL PRN ×3 (12:26→20:37)
[2020-02-02] MEDS: traZODone 50 MG TABLET PO PRN (20:37)
[2020-02-02] MEDS: hydrOXYzine pamoate 25 MG CAPSULE PO PRN (20:37)
[2020-02-03 08:15] LABS: Chol/HDL Ratio 5.1 (0-4.9)
[2020-02-03] MEDS: Nicotine 21 MG PATCH.TD24 TD SCH (08:21)
[2020-02-03] MEDS: Ondansetron ODT 4 MG TAB.RAPDIS SL PRN ×2 (08:22→17:06)
[2020-02-03 08:42] LABS: Estimated Average Glucose 111 mg/dl
[2020-02-03] MEDS: hydrOXYzine pamoate 25 MG CAPSULE PO PRN ×2 (11:13→20:57)
[2020-02-03] MEDS: traZODone 50 MG TABLET PO PRN (20:57)
[2020-02-04] MEDS: Ondansetron ODT 4 MG TAB.RAPDIS SL PRN (08:28)
[2020-02-04] MEDS: Nicotine 21 MG PATCH.TD24 TD SCH (08:28)
[2020-02-04 08:47] VITALS: BP 127/76
== END 2020-02-04 10:00 | disposition home or self-care (01) | DRG 753 ==
LOC: EMEROOARM 17:10 → 1ANU 19:27
PROVIDERS: ADMIT Psychiatry & Neurology Psychiatry; ATTEND Psychiatry & Neurology Psychiatry

== ENCOUNTER 2020-07-20 13:58 | Inpatient (IN) ==
[2020-07-20 14:32] LABS: Bilirubin,Urine Negative (Negative); Blood,Urine Trace (Negative); Clarity,Urine Clear (Clear); Color,Urine Light-Yellow (Yellow); Glucose,Urine (UA) Normal (Normal); Ketones,Urine Negative (Negative); Leukocyte Esterase,Urine Negative (Negative); Mucus,Urine Few per lpf (None-Few); Nitrite,Urine Negative (Negative); PH,Urine 7.5 pH Units (5.0-8.0); Protein,Urine Negative (Neg-Trace); Specific Gravity,Urine 1.011 (1.010-1.025); Squamous Epithelial Cell,Urine Few per hpf (None-Few); Urobilinogen,Urine Normal (Normal); WBC,Urine 0-3 per hpf (0-3)
[2020-07-20 14:41] LABS: Basophils % 0.2 %; Hemoglobin 15.5 g/dL (11.5-15.4); Red Cell Distribution Width 13.1 % (11.5-14.5)
[2020-07-20 14:43] LABS: Eosinophils # 0.1 K/mcL (0.0-0.6); Eosinophils % 0.5 %; Hematocrit 46.3 % (35.3-44.9); Immature Granulocytes % 0.4 % (0-4); Immature Platelets 4.4 % (1.1-6.1); Lymphocytes # 2.6 K/mcL (0.6-4.6); Lymphocytes % 20.1 %; Mean Corpuscular HGB Conc 33.5 g/dL (31.6-35.5); Mean Corpuscular Volume 89.7 fL (83.0-100.0); Mean Platelet Volume 10.4 fL (9.4-12.4); Monocytes # 0.5 K/mcL (0.0-1.3); Monocytes % 3.6 %; Neutrophils # 9.6 K/mcL (1.6-8.9); Platelet Count 200 K/mcL (140-400); Red Blood Count 5.16 M/mcL (3.82-4.97); Segmented Neutrophils % 75.2 %; White Blood Count 12.7 K/mcL (4.3-11.1)
[2020-07-20 14:51] LABS: Acetaminophen < 10 mcg/mL (10-20); BUN/Creatinine Ratio 15 (6-26); Blood Urea Nitrogen 10 mg/dL (6-20); Carbon Dioxide 27 mEq/L (23-29); Chloride 106 mEq/L (98-107); Chol/HDL Ratio 4.1 (0-4.9); Cholesterol 211 mg/dL (< 200); Ethanol < 10 mg/dL (Less than 10); Glucose 101 mg/dL (70-105); HDL Cholesterol 51 mg/dL (40-59); LDL Cholesterol,Calculated 141 mg/dL (< 100); Osmolality,Calculated 285 (280-300); Salicylate < 2.5 mg/dL (15.0-30.0); Sodium 138 mEq/L (136-145); Triglycerides 94 mg/dL (< 150); eGFR For African Americans > 60 (> 60); eGFR For Non-African Americans > 60 (> 60)
[2020-07-20 14:54] LABS: Amphetamine Screen,Urine Negative ng/mL (Cutoff=1000); Barbiturate Screen,Urine Negative ng/mL (Cutoff=200); Benzodiazepines Screen,Urine Negative ng/mL (Cutoff=200); Cannabinoid Screen,Urine Positive ng/mL (Cutoff = 50); Cocaine Screen,Urine Negative ng/mL (Cutoff= 300); Opiate Screen,Urine Negative ng/mL (Cutoff=300); Phencyclidine Screen,Urine Negative ng/mL (Cutoff=25)
[2020-07-20 15:05] LABS: Platelet Clumps Few (Not Present)
[2020-07-20 15:14] LABS: Estimated Average Glucose 117 mg/dl
[2020-07-20] MEDS ORDERED: Haloperidol Lactate 5 MG/ML VIAL IM PRN (17:30)
[2020-07-20] MEDS ORDERED: *HR* LORazepam 2 MG/ML VIAL IM PRN (17:30)
[2020-07-20] MEDS ORDERED: Mag Hydrox/Al Hydrox/Simeth 30 ML UDC PO PRN (17:30)
[2020-07-20] MEDS ORDERED: *HR* LORazepam 1 MG TABLET PO PRN (17:30)
[2020-07-20] MEDS ORDERED: Acetaminophen 325 MG TABLET PO PRN (17:30)
[2020-07-20] MEDS ORDERED: MOM Conc 10 ML UD.LIQ PO PRN (17:30)
[2020-07-20] MEDS ORDERED: haloperidoL 5 MG TABLET PO PRN (17:30)
[2020-07-20] MEDS ORDERED: ARISTADA IM SCH (17:45)
[2020-07-20] MEDS: hydrOXYzine pamoate 25 MG CAPSULE PO PRN (19:36)
[2020-07-20] MEDS: traZODone 50 MG TABLET PO PRN (20:34)
[2020-07-21] MEDS: Nicotine 14 MG PATCH.TD24 TD SCH (16:53)
[2020-07-21] MEDS: traZODone 50 MG TABLET PO PRN (20:38)
[2020-07-21] MEDS: hydrOXYzine pamoate 25 MG CAPSULE PO PRN (20:38)
[2020-07-22] MEDS: Nicotine 14 MG PATCH.TD24 TD SCH (09:26)
[2020-07-23] MEDS: Nicotine 14 MG PATCH.TD24 TD SCH (09:05)
[2020-07-23 09:40] VITALS: BP 118/20
== END 2020-07-23 11:50 | disposition home or self-care (01) | DRG 753 ==
LOC: EMEROOARM 13:58 → 1ANU 17:28
PROVIDERS: ADMIT Psychiatry & Neurology Forensic Psychiatry; ATTEND Psychiatry & Neurology Forensic Psychiatry